=== PATIENT | female | born 1955 | race Caucasian/White ===

== ENCOUNTER 2018-02-26 17:29 | Observation (INO) | payer OTHER ==
--- NOTE | 2018-02-26 18:08 | RAD ---
CHEST ONE VIEW: 02/26/18 HISTORY: Chest pain. COMPARISON: 07/21/11. FINDINGS: The cardiac silhouette is magnified by projection. Pulmonary vasculature upper limits of normal. medi astinum is midline. No lobar consolidation or evidence of pneumothorax. Postoperative changes of each shoulder. IMPRESSION: No active cardiopulmonary abnormalities are demonstrated. POS: [facility]
[2018-02-26 18:17] LABS: Bilirubin Negative (Negative); Blood, Urine Negative (Negative); Clarity CLEAR (Clear); Glucose, Urine (Dipstick) Negative (Negative); Leukocyte Negative (Negative); Nitrite Negative (Negative); Protein, Urine (Dipstick) Negative (Neg-Trace); Specific Gravity, Urine 1.007 (1.002-1.036); Urobilinogen 0.2 mg/dL (0.2-1.0)
[2018-02-26 18:26] LABS: Amphetamine Not Detected (NotDetected); Barbiturates Screen Not Detected (NotDetected); Benzodiazepine Screen Not Detected (NotDetected); Cocaine Metabolite Screen Not Detected (NotDetected); Medtox Control Line Valid? VALID (VALID); Medtox Reader # READER 1; Methadone Not Detected (NotDetected); Methamphetamine Not Detected (NotDetected); Opiate Screen Detected (NotDetected); Oxycodone Screen Not Detected (NotDetected); Phencyclidine (PCP) Not Detected (NotDetected); THC/Cannabinoid Screen Not Detected (NotDetected); Tricyclic Screen Detected (NotDetected)
[2018-02-26 18:40] LABS: #Eosinphils 0.3 thou/uL (0.0-0.7); #Lymphocytes 3.4 thou/uL (1.20-3.40); #Monocytes 0.5 thou/uL (0.11-0.59); #Neutrophils 3.1 thou/uL (1.40-6.50); %Basophils 0.4 % (0.0-1.0); %Eosinophils 4.4 % (0.0-10.0); %Lymphocytes 46.1 % (21.0-51.0); %Monocytes 6.9 % (0.0-10.0); %Neutrophils 42.3 % (42.0-75.0); Hemoglobin 13.2 g/dL (12.0-16.0); Mean Corpuscular HGB CONC 33.7 g/dL (32.0-36.0); Mean Corpuscular Hemoglobin 33.1 pg (27.0-31.0); Mean Corpuscular Volume 98.3 fL (78.0-98.0); Mean Platelet Volume 6.8 fL (7.4-10.4); Platelet Count 212 thou/uL (130-400); RBC Distribution Width 10.8 % (11.5-14.5); Red Blood Cell (RBC) Count 3.99 mill/uL (4.20-5.40); White Blood Cell (WBC) Count 7.4 thou/uL (4.8-10.8)
[2018-02-26 19:05] LABS: ALT (SGPT) 13 U/L (8-55); AST (SGOT) 15 U/L (5-34); Albumin 3.8 g/dL (3.4-4.8); Alkaline Phosphatase 58 U/L (40-150); Anion Gap 15 mmol/L (10-20); BUN (Urea Nitrogen) 11 mg/dL (9.8-20.1); Bilirubin, Total 0.5 mg/dL (0.2-1.2); CK (CPK) 54 U/L (29-168); Calc. Creatinine Clearance 0 mL/min (70-130); Calcium 9.3 mg/dL (7.8-10.44); Carbon Dioxide 21 mmol/L (23-31); Chloride 101 mmol/L (98-107); Estimated GFR-MDRD 63; Globulin 2.9 g/dL (2.4-3.5); Glucose 120 mg/dL (80-115); Lipase 18 U/L (8-78); Potassium 3.7 mmol/L (3.5-5.1); Protein, Total 6.7 g/dL (6.0-8.3); Sodium 133 mmol/L (136-145)
[2018-02-26 19:08] LABS: CKMB 3.5 ng/mL (0-6.6); Troponin I Less than 0.010 ng/mL (< 0.028)
--- NOTE | 2018-02-26 19:32 | CT ---
CT HEAD NONCONTRAST: 02/26/18 HISTORY: Altered mental status. COMPARISON: 07/22/11. FINDINGS: There is no evidence of acute intracranial hemorrhage or infarct. ventricles appear normal in size, s hape and position. No mass effect or shift of midline structures. Calcification within the carotid ar teries at the brain base. Mucosal thickening within each maxillary sinus. IMPRESSION: Atherosclerosis. No acute intracranial abnormalities are demonstrated. POS: [facility]
[2018-02-26 20:49] LABS: Acetaminophen Less than 6.0 mcg/mL (10.0-30.0); Alcohol Less than 10 mg/dL (Less than 10); Salicylate Less than 8.0 mg/dL (15.0-30.0)
--- NOTE | 2018-02-26 21:54 | PDOC.FPRHP ---
- History of Present Illness Chief Complaint: AMS History of Present Illness: Ms Ga is a 62yo female with pmh of TIA's, CHF and hx of substance abuse presenting for AMS starting today. She currently lives with her twin sister and niece. Her niece is their primary caregiver. Most of the hx is provided by niece as patient at the time of initial interview was only oriented to self and a poor historian. Niece appears to be acutely manic, speaking with pressured speech, endorsing lack of sleep and fixation on pt's medical problems. When asking the patient how her day was she cannot remember but feels like it was a normal day. Denies fevers, chills, chest pain, SOB. Pt reports being always weaker on her left side and uses a walker and cane ambulate. Pts niece is very concerned about patients perceived change form baseline. When speaking with ED staff there is some concern for intermittent new right sided weakness and should be admitted for stoke workup. ED Course: ASA, 1L NS - Allergies/Adverse Reactions Allergies Allergy/AdvReac Type Severity Reaction Status Date / Time Sulfa (Sulfonamide Allergy Verified 02/26/18 21:43 Antibiotics) - Home Medications Medication Instructions Recorded Confirmed Type Atorvastatin Calcium 40 mg PO HS 02/26/18 02/26/18 History Benztropine Mesylate 1 mg PO BID 02/26/18 02/26/18 History DULoxetine [Cymbalta] 60 mg PO QAM 02/26/18 02/26/18 History Ibuprofen 600 mg PO TID 02/26/18 02/26/18 History QUEtiapine Fumarate [SEROquel] 100 mg PO HS 02/26/18 02/26/18 History Spironolactone [Aldactone] 100 mg PO QAM 02/26/18 02/26/18 History Topiramate [Topamax] 50 mg PO QAM 02/26/18 02/26/18 History risperiDONE 2 mg PO QAM 02/26/18 02/26/18 History Aspirin [Ecotrin Low Strength] 81 mg PO DAILY tab 02/27/18 Rx - History PMHx: CHF, chronic back pain, TIAs, unspecified psych disorder PSHx: Pt reports cholecystectomy FHx: Dementia in twin sister Social: Smoked for 49 years 3pks per day- quit 2 weeks ago, hx of alcohol use, hx of marijuana use - Review of Systems General: denies: fever/chills, weight/appetite/sleep changes Eyes: reports: other (denies blurry vision). denies: vision changes ENT: denies: nasal congestion, rhinorrhea Respiratory: denies: cough, congestion, shortness of breath Cardiovascular: denies: chest pain, edema Gastrointestinal: denies: nausea, vomiting, diarrhea, constipation, abdominal pain Genitourinary: reports: other (urinary retention) Skin: denies: rashes, lesions Musculoskeletal: denies: pain, swelling Neurological: reports: weakness. denies: numbness - Vital signs BP: 118/81 HR: 69 RR: 18 Tmax: 97.7 Pox: 97% on RA Wt: 85.7kg - Physical Exam Constitutional: NAD, awake, alert and oriented, well developed -Constitutional: Mental status waxes and wanes between oriented to person to Ox4 HEENT: normocephalic and atraumatic, PERRLA, oropharynx clear -HEENT: dry mucous membranes, poor dentition Neck: supple, trachea midline Heart: RRR, pulses present, no edema Lungs: CTAB Abdomen: soft, non-tender, bowel sounds present, other (healed scar on right abdomen) Neurological: CN II-XII intact, other (4/5 wrist aerologist of left hand, 4/5 weakness of left leg) Skin: capillary refill <2 seconds Psychiatric: normal mood and affect, good judgment and insight, intact recent and remote memory FMR H&P: Results - Labs Result Diagrams: 02/26/18 18:31 02/26/18 18:31 Lab results: WBC 7.4 thou/uL (4.8-10.8) 02/26/18 18:31 Hgb 13.2 g/dL (12.0-16.0) 02/26/18 18:31 Hct 39.2 % (36.0-47.0) 02/26/18 18:31 MCV 98.3 fL (78.0-98.0) H 02/26/18 18:31 Plt Count 212 thou/uL (130-400) 02/26/18 18:31 Neutrophils % 42.3 % (42.0-75.0) 02/26/18 18:31 Sodium 133 mmol/L (136-145) L 02/26/18 18:31 Potassium 3.7 mmol/L (3.5-5.1) 02/26/18 18:31 Chloride 101 mmol/L (98-107) 02/26/18 18:31 Carbon Dioxide 21 mmol/L (23-31) L 02/26/18 18:31 BUN 11 mg/dL (9.8-20.1) 02/26/18 18:31 Creatinine 0.90 mg/dL (0.6-1.1) 02/26/18 18:31 Glucose 120 mg/dL (80-115) H 02/26/18 18:31 Lactic Acid 1.7 mmol/L (0.5-2.2) 02/26/18 18:59 Calcium 9.3 mg/dL (7.8-10.44) 02/26/18 18:31 Total Bilirubin 0.5 mg/dL (0.2-1.2) 02/26/18 18:31 AST 15 U/L (5-34) 02/26/18 18:31 ALT 13 U/L (8-55) 02/26/18 18:31 Alkaline Phosphatase 58 U/L (40-150) 02/26/18 18:31 Ammonia 36 umol/L (18-72) 02/26/18 18:31 Creatine Kinase 54 U/L (29-168) 02/26/18 18:31 CK-MB (CK-2) 3.5 ng/mL (0-6.6) 02/26/18 18:31 B-Natriuretic Peptide 25.9 pg/mL (0-100) 02/26/18 20:20 Serum Total Protein 6.7 g/dL (6.0-8.3) 02/26/18 18:31 Albumin 3.8 g/dL (3.4-4.8) 02/26/18 18:31 Lipase 18 U/L (8-78) 02/26/18 18:31 Urine Ketones Negative mg/dL (Negative) 02/26/18 18:03 Urine Blood Negative (Negative) 02/26/18 18:03 Urine Nitrite Negative (Negative) 02/26/18 18:03 Ur Leukocyte Esterase Negative (Negative) 02/26/18 18:03 - Radiology Interpretation Chest x-ray Status: report reviewed by me Additional comment: No acute cardiopulm process CT scan - head Status: report reviewed by me Additional comment: No acute changes FMR H&P: A/P - Problem List (1) Encephalopathy Current Visit: Yes Status: Acute Code(s): G93.40 - ENCEPHALOPATHY, UNSPECIFIED (2) History of recurrent TIAs Current Visit: Yes Status: Acute Code(s): Z86.73 - PRSNL HX OF TIA (TIA), AND CEREB INFRC W/O RESID DEFICITS (3) CHF (congestive heart failure) Current Visit: Yes Status: Acute Code(s): I50.9 - HEART FAILURE, UNSPECIFIED (4) Back pain Current Visit: Yes Status: Acute Code(s): M54.9 - DORSALGIA, UNSPECIFIED - Plan Ms Ga is a 62yo female with pmh of substance abuse, unspecified psych disorder, CHF, TIAs presenting with presumed new intermittent right sided weakness and reported AMS concerning for stroke. Right sided weakness, encephalopathy - Admit to stroke - MRI in AM - Neurochecks q4hr - Continue home Atorvastatin - FLP CHF - Pt appears to euvolemic - BNP 25 - Stict I&Os - Fluid restriction 1800L Unspecified Pysch - Continue home Seroquel, Benztropine, Risperidone HLD - Continue home Atorvastatin TIAs - Unclear of TIA vs stroke - Niece and pt report persistent right handed weakness Tobacco Abuse - Pt reports quitting recently - Continue to scholarship counselor on importance of smoking cessation Nerve Pain - Continue home Duloxetine Code Status: FULL DVT ppx: lovenox FMR H&P: Upper Level - Pertinent history HPI: Ms. Ga is a 62 yo F with PMHx of dementia, polysubtance absue, TIAs and CHF who presents for AMS. She lives with her niece who is her caregiver, as well as a TELECOMMUNICATIONS CONSULTANT, who notes she did not seem herself this afternoon. The patient is unable to describe the day and states that at this time she feels fine. She has no complaints and does not feel that she has any new weakness. She always feels a little weaker on the L side. At home she gets around with a walker and a cane. She states she feels safe at home with her neice and that she has all the needs to be taken care of. Her niece has donald extensive notes regarding her concerns, most notably that she has noticed new weakness on the R as well as decreased UOP. Her niece states that she administers her Tylenol #4 and TCA and patient does not have access to it to inadvertently take more than prescribed. - Pertinent findings Exam: Gen: awake, alert, oriented x1 HEENT: PERRL, EOMI, conjunctiva non-injected. Trachea midline CV: RRR, no murmur noted, heart sounds distant RESP: CTAB ABD: soft, nontender Ext: No peripheral edema, pulses 1+ throughout Neuro: CN intact, strength 5/5 except for 4/5 aerologist on L and 4/5 plantar flexion on RLE CXR: No acute cardiopulmonary findings. Cardiomegaly CT brain WO contrast: Atherosclerosis. No acute intracranial abnormalities. EKG: Low voltage. NSR. Labs: Hgb 13, Hct 39, Plt 212, MCV 98, Na 133, K 3.7, CO2 21, Glu 120, Cr 0.9, Lactic acid 1.7, Trop negative, TSH 3.01, UDS positive for opiates and tricyclics - Plan Date/Time: 02/26/182132 A/P: 62 yo F with PMHx dementia presents with concern for AMS and transient R sided weakness which is waxing and waning 1. AMS: Appears to be at baseline at this time. Will monitor on stroke with neurochecks. CT negative. Will plan for MRI in the morning. Likely waxing and waning of chronic dementia. Labs WNL at this time. 2. CHF: Unknown EF. Most care has been at [facility]. Will use caution with any fluid administration and continue home medications. BNP 25. Strict I/Os. Fluid restricted diet to 1800 mL. 3. Dementia: Twin sister has it as well. 4. TIAs: Possible stroke as patient has what seem to be chronic findings of mild weakness in L aerologist and RLE plantar flexion. Will review MRI findings. 5. Unspecified psych disorder: Continue home Seroquel, benztropine, risperdone 6. HLD: Continue home atorvastatin. Will risk stratify with FLP in a.m. 7. Neuropathy: Continue home duloxetine 8. UDS positive for opiates and TCAs: Neither appear on patient med list but ER reports patient taking Tylenol #4 and TCAs. Will need to clarify with niece in the morning. No family at bedside at this time. 9. ?Seizure disorder: Topamax PPX: Lovenox CODE: FULL I, Janna Deleon MD, have evaluated this patient and agree with findings/plan as outlined by rn internal medicine resident. Pertinent changes/additions are listed here. Attending Addendum - Attending Addendum Date/Time: 02/26/18 [id number] I personally evaluated the patient and discussed the management with Dr. Turk. I agree with the History, Examination, Assessment and Plan documented above with any addition or exceptions noted below. The patient was brought to the ER for a change in mentation. There was mention of weakness in extremities though her neuro exam was normal for me. She is alert and oriented to person, place and year. The patient was using both hand and legs to move herself up the in the bed in the ER. No family was at bedside during my evaluation. Pt will be admitted for TIA workup and will have MRI tomorrow.
[2018-02-26 22:37] VITALS: BMI 33.1
[2018-02-27] MEDS ORDERED: Ibuprofen 600 MG TAB PO PRN (00:18)
[2018-02-27] MEDS ORDERED: Acetaminophen/Codeine 30-300mg Tablet PO PRN (04:28)
[2018-02-27 06:04] LABS: Cardiac Risk 3.6 (Less than 4.5)
--- NOTE | 2018-02-27 06:52 | PDOC.FM ---
- Subjective Subjective: Pt. states she is doing well this morning. She denies any weakness, dizziness, chest pain, or SOB. Niece was present and has multiple concerns unrelated to this hospital stay. - Objective MAR Reviewed: Yes Vital Signs & Weight: Vital Signs (12 hours) Temp Pulse Resp BP Pulse Ox 02/27/18 03:40 97.7 F 52 L 16 130/72 96 02/26/18 23:00 97.9 F 58 L 16 02/26/18 22:36 97.9 F 58 L 16 128/73 95 Weight Weight 90.356 kg I&O: 02/25/18 02/26/18 02/27/18 06:59 06:59 06:59 Intake Total 300 Output Total 400 Balance -100 Result Diagrams: 02/26/18 18:31 02/26/18 18:31 <Horace Brice - Last Filed: 02/27/18 16:34> - Objective Vital Signs & Weight: Vital Signs (12 hours) Temp Pulse Resp BP Pulse Ox 02/27/18 16:00 98.0 F 60 18 93/55 L 95 02/27/18 11:39 98.1 F 61 16 93/53 L 95 Weight Weight 90.356 kg I&O: 02/26/18 02/27/18 02/28/18 06:59 06:59 06:59 Intake Total 300 Output Total 400 Balance -100 Result Diagrams: 02/26/18 18:31 02/26/18 18:31 <Jennifer Rosas - Last Filed: 02/27/18 23:13> Phys Exam - Physical Examination Constitutional: NAD HEENT: PERRLA Dry mucus membranes Neck: no JVD, full ROM Respiratory: no wheezing, clear to auscultation bilateral Cardiovascular: RRR, no significant murmur Gastrointestinal: soft, non-tender Musculoskeletal: no edema, pulses present Neurological: non-focal, normal sensation, moves all 4 limbs Psychiatric: normal affect, A&O x 3 Skin: normal turgor, cap refill <2 seconds <Horace Brice - Last Filed: 02/27/18 16:34> Dx/Plan (1) Back pain Code(s): M54.9 - DORSALGIA, UNSPECIFIED Status: Acute (2) CHF (congestive heart failure) Code(s): I50.9 - HEART FAILURE, UNSPECIFIED Status: Acute (3) Encephalopathy Code(s): G93.40 - ENCEPHALOPATHY, UNSPECIFIED Status: Acute (4) History of recurrent TIAs Code(s): Z86.73 - PRSNL HX OF TIA (TIA), AND CEREB INFRC W/O RESID DEFICITS Status: Acute - Plan Plan: 62 yo F PMH substance abuse, psych disorder, CHF, recurrent TIAs Right sided weakness, encephalopathy -Admit to stroke. Pending MRI, Q4 hr neurochecks, continue home atorvastatin. We will start aspirin. CHF -BNP was 25 in ER. We will monitor I&Os and fluid restrict at 1800mL Unspecified psych -home seroquel, benzotropine, risperidone HLD -Continue atorvastatin Hx of TIAs -New right sided weakness, will monitor as mentioned above Nerve pain -Continue duloxetine Code: full Family: Niece and daughter present in room DVT ppx: lovenox Disposition: likely home today if MRI is negative <Horace Brice - Last Filed: 02/27/18 16:34> (1) Encephalopathy Code(s): G93.40 - ENCEPHALOPATHY, UNSPECIFIED Status: Acute (2) History of recurrent TIAs Code(s): Z86.73 - PRSNL HX OF TIA (TIA), AND CEREB INFRC W/O RESID DEFICITS Status: Acute (3) CHF (congestive heart failure) Code(s): I50.9 - HEART FAILURE, UNSPECIFIED Status: Acute (4) Back pain Code(s): M54.9 - DORSALGIA, UNSPECIFIED Status: Acute <Jennifer Rosas - Last Filed: 02/27/18 23:13> Attending Addendum - Attending Addendum Date/Time: 02/27/18 0612 I personally evaluated the patient and discussed the management with Dr. Brice. I agree with the History, Examination, Assessment and Plan documented above with any addition or exceptions noted below. The patient is doing very well this morning. She is A&O x 4. Her neuro exam is normal, no weakness is appreciated. Will get MRI this morning and if negative will likely d/c home. There was some concern with urination per report from pt's javi however the patient was able to void this morning without difficulty. <Jennifer Rosas - Last Filed: 02/27/18 23:13>
[2018-02-27] MEDS: Aspirin 81 mg Enteric Coated Tablet PO SCH ×2 (08:57→09:31)
[2018-02-27] MEDS ORDERED: DULoxetine 60 MG CAP PO SCH (09:00)
[2018-02-27] MEDS ORDERED: risperiDONE 1 MG TAB PO SCH (09:00)
[2018-02-27] MEDS ORDERED: Spironolactone 100 MG TAB PO SCH (09:00)
[2018-02-27] MEDS ORDERED: Enoxaparin Sodium 40 MG/0.4 ML SYRINGE SC SCH (09:00)
[2018-02-27] MEDS ORDERED: Ibuprofen 600 MG TAB PO SCH (09:00)
[2018-02-27] MEDS ORDERED: Topiramate 25 MG TAB PO SCH (09:00)
[2018-02-27] MEDS ORDERED: Benztropine 1 MG TAB PO SCH (09:00)
--- NOTE | 2018-02-27 12:52 | MRI ---
BRAIN MRI WITH AND WITHOUT CONTRAST: DATE: 02/27/18. COMPARISON: None. HISTORY: Altered mental status, possible medication overdose, slurred speech. TECHNIQUE: Multiplanar, multisequence MR imaging of the brain is obtained with and without contrast. FINDINGS: The diffusion weighted imaging demonstrates no evidence for acute infarction. There is mucosal thickening involving the maxillary sinuses bilaterally. Arterial flow voids at the axial level of the skull base appear grossly unremarkable on the T2 weight ed imaging. Axial gradient echo imaging demonstrates no evidence for intracranial hemorrhage. A few scattered foci of increased T2 and FLAIR signal are noted within the subcortical and periventri cular white matter suggesting mild small-vessel disease. There is no midline shift, mass effect, or ventricular enlargement. Postcontrast imaging demonstrates no abnormal enhancement within the brain parenchyma. IMPRESSION: No acute findings. POS: [facility]
[2018-02-27 16:04] VITALS: BP 93/55; TEMP 98
--- NOTE | 2018-02-27 18:49 | DIS-2 ---
DATE OF ADMISSION: 02/26/2018 DATE OF DISCHARGE: 02/27/2018 ADMITTING ATTENDING: Dr. Rosas DISCHARGE ATTENDING: Dr. Rosas. RESIDENT: Brook Brice DO CONSULTATIONS: None. PROCEDURES: Brain CT with no signs of acute process, brain MRI with no signs of acute process, chest x-ray with no active cardiopulmonary abnormalities. PRIMARY DIAGNOSES: Transient ischemic attack. SECONDARY DIAGNOSES: History of TIAs, CHF, unspecified psych disorder, substance abuse. DISCHARGE MEDICATIONS: None. DISCONTINUED MEDICATIONS: None. HISTORY OF PRESENT ILLNESS AND HOSPITAL COURSE: This is a 62-year-old female who presented to the ER with a reported altered mental status, slumping in her chair, and at the time right-sided weakness. In the ER, received a CT with the results listed above. She was admitted to the floor for observati on and stroke workup. Patient's niece is concerned for stroke versus seizures. No seizure activity was noted while she was here. The patient has multiple concerns that are unrelated to hospitalizatio n. The patient improved throughout the night and was awake, alert, and oriented x4 this morning and at the time of discharge. The patient is currently on aspirin daily and a statin daily. Patient was stable at the time of discharge. DISPOSITION: Stable. DISCHARGE INSTRUCTIONS: 1. Location: Home. 2. Activity: As tolerated. 3. Diet: Full. 4. Follow up with primary care physician in 1-2 weeks.
[2018-02-27] MEDS ORDERED: Atorvastatin Calcium 40 MG TAB PO SCH (21:00)
== END 2018-02-27 17:25 | disposition home or self-care (01) ==
LOC: ERS 17:29 → 2SE 22:19
PROVIDERS: ADMIT Family Medicine; ATTEND Family Medicine
DX: G45.9 Transient cerebral ischemic attack, unspecified (principal); G93.40 Encephalopathy, unspecified; G89.29 Other chronic pain; M54.9 Dorsalgia, unspecified; I50.9 Heart failure, unspecified; F19.20 Other psychoactive substance dependence, uncomplicated; F99 Mental disorder, not otherwise specified; Z87.891 Personal history of nicotine dependence; Z86.73 Personal history of transient ischemic attack (TIA), and cerebral infarction without residual deficits; Z79.82 Long term (current) use of aspirin; Z79.899 Other long term (current) drug therapy; Z88.2 Allergy status to sulfonamides
CPT/HCPCS: 36415; 51701; 70450; 70553; 71045; 80053; 80061; 80306; 80307; 81003; 82140; 82553; 83605; 83690; 83880; 84443; 84484; 85025; 87086; 93005; 96360; 96361; 96372; A4353; G0378; J1650

== ENCOUNTER 2018-02-28 10:51 | Emergency (ER) | payer OTHER ==
--- NOTE | 2018-02-28 12:00 | RAD ---
TWO VIEWS OF THE CHEST: DATE: 02/28/18. COMPARISON: 02/26/18. HISTORY: Chest pain and shortness of breath. FINDINGS: Postsurgical anchors overlie bilateral humeral heads. No pneumothorax or pleural fluid. No focal co nsolidation or alveolar edema. IMPRESSION: No acute findings. POS: [facility]
[2018-02-28 12:17] LABS: #Lymphocytes 1.8 thou/uL (1.20-3.40); #Monocytes 0.7 thou/uL (0.11-0.59); #Neutrophils 11.2 thou/uL (1.40-6.50); %Basophils 0.3 % (0.0-1.0); %Eosinophils 0.3 % (0.0-10.0); %Lymphocytes 13.3 % (21.0-51.0); %Neutrophils 81.2 % (42.0-75.0); Mean Corpuscular HGB CONC 34.6 g/dL (32.0-36.0); Mean Corpuscular Hemoglobin 34.2 pg (27.0-31.0); Mean Platelet Volume 6.9 fL (7.4-10.4); Platelet Count 239 thou/uL (130-400); RBC Distribution Width 10.9 % (11.5-14.5); Red Blood Cell (RBC) Count 3.78 mill/uL (4.20-5.40); White Blood Cell (WBC) Count 13.8 thou/uL (4.8-10.8)
[2018-02-28 12:39] LABS: ALT (SGPT) 11 U/L (8-55); AST (SGOT) 14 U/L (5-34); Albumin 3.8 g/dL (3.4-4.8); Alkaline Phosphatase 58 U/L (40-150); Anion Gap 13 mmol/L (10-20); BUN (Urea Nitrogen) 6 mg/dL (9.8-20.1); Bilirubin, Total 0.5 mg/dL (0.2-1.2); Calc. Creatinine Clearance 0 mL/min (70-130); Calcium 9.1 mg/dL (7.8-10.44); Carbon Dioxide 20 mmol/L (23-31); Chloride 106 mmol/L (98-107); Estimated GFR-MDRD 77; Globulin 2.9 g/dL (2.4-3.5); Glucose 130 mg/dL (80-115); Potassium 4.4 mmol/L (3.5-5.1); Protein, Total 6.7 g/dL (6.0-8.3); Sodium 135 mmol/L (136-145)
[2018-02-28 12:44] LABS: CKMB 4.6 ng/mL (0-6.6); Troponin I Less than 0.010 ng/mL (< 0.028)
[2018-02-28 15:09] LABS: CKMB 5.1 ng/mL (0-6.6); Troponin I Less than 0.010 ng/mL (< 0.028)
== END 2018-02-28 15:55 | disposition home or self-care (01) ==
LOC: ERS 10:51
DX: R07.2 Precordial pain (principal); F31.9 Bipolar disorder, unspecified; F20.9 Schizophrenia, unspecified; Z79.899 Other long term (current) drug therapy; Z79.1 Long term (current) use of non-steroidal anti-inflammatories (NSAID)
CPT/HCPCS: 36415; 71046; 80053; 82553; 84484; 85025; 93005

== ENCOUNTER 2018-07-16 12:51 | Outpatient (CLI) | payer OTHER ==
[~2018-07-16 12:51] MED LIST: ISOVUE-370 76%-LOCM 1 ML ONE
[2018-07-16 13:24] LABS: Estimated GFR-MDRD - POC Greater than 90
--- NOTE | 2018-07-16 15:53 | CT ---
CT ABDOMEN AND PELVIS WITH AND WITHOUT IV CONTRAST: HISTORY: Hematuria, unspecified. FINDINGS: The lung bases are unremarkable. There is a questionable mildly enhancing mass in the left lobe of t he liver measuring 6.5 cm. A 7 mm low-density lesion is seen in the right lobe of the liver. No kathy cified gallstones are seen. The spleen, pancreas, and adrenal glands are normal. No calculi are seen in the kidneys, ureters, or the urinary bladder. No hydroureteral nephrosis is s een on either side. Postcontrast images demonstrate no evidence of a renal mass. There is normal co ntrast excretion into the ureter or the urinary bladder. No free air, free fluid, or lymphadenopathy is seen in the abdomen or pelvis. There are vascular kathy cifications without evidence of aneurysmal dilatation of the abdominal aorta. There are degenerative changes in the spine. Uterus is present. IMPRESSION: 1. No CT evidence of urinary tract calculus/obstruction or renal mass. 2. Probable hepatic mass. Evaluation with ultrasound is recommended. POS: [facility]
== END 2018-07-16 12:52 | disposition home or self-care (01) ==
LOC: BICCT 12:51
PROVIDERS: ATTEND Urology
DX: R31.9 Hematuria, unspecified (principal)
CPT/HCPCS: 74178; 82565

== ENCOUNTER 2020-04-09 20:02 | Inpatient (IN) | payer OTHER ==
[~2020-04-09 20:02] MED LIST changes: -ISOVUE-370 76%-LOCM 1 ML ONE; +Iopamidol 370 76% 100 ML VIAL ONE
[2020-04-09 21:01] LABS: Hemoglobin 14.2 g/dL (12.0-16.0); Mean Corpuscular HGB CONC 34.9 g/dL (32.0-36.0); Mean Corpuscular Hemoglobin 33.8 pg (27.0-31.0); Mean Corpuscular Volume 96.9 fL (78.0-98.0); Mean Platelet Volume 9.3 fL (7.4-10.4); Platelet Count 145 thou/uL (130-400); RBC Distribution Width 11.5 % (11.5-14.5)
[2020-04-09 21:08] LABS: Band 23 % (5-11); Lymphocytes 9 % (21-51); MDiff Complete? YES; Monocytes 4 % (0-10); Neutrophil 64 % (42-75); Platelet Morphology Comment Appears Adequate
[2020-04-09 21:16] LABS: ALT (SGPT) 12 U/L (8-55); AST (SGOT) 29 U/L (5-34); Albumin 3.7 g/dL (3.4-4.8); Alkaline Phosphatase 42 U/L (40-110); Anion Gap 17 mmol/L (10-20); BUN (Urea Nitrogen) 24 mg/dL (9.8-20.1); Calc. Creatinine Clearance 0 mL/min (70-130); Calcium 9.3 mg/dL (7.8-10.44); Carbon Dioxide 22 mmol/L (23-31); Chloride 100 mmol/L (98-107); Estimated GFR-MDRD 46; Globulin 3.4 g/dL (2.4-3.5); Glucose 140 mg/dL (80-115); Lipase 16 U/L (8-78); Potassium 4.5 mmol/L (3.5-5.1); Protein, Total 7.1 g/dL (6.0-8.3); Sodium 134 mmol/L (136-145)
[2020-04-09] MEDS ORDERED: Ondansetron PF 4 MG/2 ML Vial ONE (22:38)
[2020-04-09] MEDS ORDERED: Morphine 4 MG/ML VIAL ONE (22:38)
--- NOTE | 2020-04-09 22:52 | CT ---
CT OF THE ABDOMEN AND PELVIS WITH IV CONTRAST INDICATION: History of diarrhea and abdominal pain COMPARISON: Prior CT the abdomen and pelvis with and without contrast dated July 16, 2018 FINDINGS: ABDOMEN: Lung bases: There is pneumomediastinum and gas dissecting into the right aspect of the extrapleural s pace of the lower anterior right hemithorax, along the surface of the right hemidiaphragm. This is communicating with extensive gas in the right aspect of the retroperitoneum that communicates with a large collection of gas surrounding the sigmoid rectal junction. Liver: No focal lesion. Gallbladder: Normal appearing. Pancreas: Normal. Adrenal glands: Normal. Spleen: Normal. Kidneys and ureters: There is extensive gas within the right perirenal space. There is scattered gas within the anterior pararenal space. No focal renal lesion is evident. Vasculature: There are mild vascular calcifications seen involving the visualized vasculature. Lymph nodes:No lymphadenopathy. Free fluid in abdomen:No free fluid is evident. PELVIS: Small and large bowel: There is prominent amount retained stool within the rectum, sigmoid colon, lef t hemicolon and transverse colon with more fluid density seen within the right hemicolon. The small bowel is of normal caliber. There is prominent amount of pneumatosis surrounding the upper rectum and sigmoid colon. Appendix:Not definitely seen Bladder: Normal. Rectal and perirectal soft tissues:There is prominent amount of gas in the wall of the upper rectum. Prominent amount of gas is seen within the upper perirectal and presacral soft tissues. Reproductive structures: Normal. Free fluid in pelvis: Mild free fluid is seen within the lower pelvis. Lymphadenopathy pelvis: No lymphadenopathy is evident. Osseous structures: No acute osseous abnormality. No destructive osteolytic or osteoblastic lesion i s identified. There is scattered degenerative and osteoarthritic changes. Soft tissues:Normal. IMPRESSION: 1. Extensive pneumatosis involving the distal sigmoid colon and upper rectum with extensive gas prese nt within the upper perirectal soft tissues extending into the retroperitoneum of the abdomen and dissecting into the mediastinum and right hemithorax extrapleural space. A focal mucosal/submucosal t ear from prominent constipation in the sigmoid colon and upper rectum is suspected. Surgical consultation is recommended. 2. Findings called to Dr. Newton at 10:40 PM on April 09, 2020.
[2020-04-09] MEDS ORDERED: Piperacillin/Tazobactam 4.5 GM VIAL ONE (23:09)
[2020-04-09] MEDS ORDERED: Piperacillin/Tazobactam 3.375 GM VIAL ONE (23:12)
[2020-04-09] MEDS ORDERED: Ondansetron PF 4 MG/2 ML Vial IVP PRN (23:42)
--- NOTE | 2020-04-09 23:54 | PDOC.HHP ---
Hospitalist HPI - History of Present Illness Abdominal pain History of Present Illness: 64-year-old woman with a history of bipolar disorder, schizophrenia, chronic back pain, neuropathic pain presents to the emergency department with a complaint of abdominal pain and diarrhea. Patient reports she has been experiencing abdominal pain since last week but the pain became much worse today. She also reported several bouts of diarrhea. She denied any bloody stool. She denied any vomiting but endorsed decreased oral intake. She mentioned her last bowel movement was this morning. Patient denies any fever. CT scan done in the emergency department report extensive pneumatosis involving the distal sigmoid colon and upper rectum with extensive gas present within the upper perirectal soft tissue extending into the retroperitoneum of the abdomen and exiting into the mediastinum and right hemithorax extrapleural space. It also reported a focal mucosal or submucosal tear from prominent constipation in the sigmoid colon and upper rectum. Had WBC count 18,000. Patient is normotensive, intermittently tachycardic admit criteria for sepsis. Her lactic acid was 5. I spoke to General Surgeon-Dr. Fox on the phone, to discuss plan of care since this case is mostly surgical. Dr. Navarrete stated he would want to observe patient for improvement with IV antibiotics over the next 24 hours before considering surgery and for that matter recommended admission to the hospitalist service for him to consult. He also recommended not to treat constipation until he sees and evaluate the patient. Hospitalist ROS - Review of Systems Other: Except as documented, all other systems reviewed and negative. - Medication Medications: Medication Instructions Recorded Confirmed Type Atorvastatin Calcium 40 mg PO HS 02/26/18 04/10/20 History Ibuprofen 600 mg PO TID 02/26/18 04/10/20 History Aspirin [Ecotrin Low Strength] 81 mg PO DAILY tab 02/27/18 04/10/20 Rx Acetaminophen With Codeine 1 tab PO Q6HR PRN 11/29/18 04/10/20 History [Acetaminophen/Codeine #4] Alendronate Sodium 70 mg PO Q7DAYS 11/29/18 04/10/20 History DULoxetine HCl [Cymbalta] 30 mg PO DAILY 11/29/18 04/10/20 History Fluticasone Propionate [Flonase 1 spray EA NARE BID 11/29/18 04/10/20 History Nasal Nocatee] Furosemide [Lasix] 20 mg PO DAILY 11/29/18 04/10/20 History Ipratropium [Atrovent HFA] 1 puff INH QID PRN 11/29/18 04/10/20 History Multivit-Minerals/Folic/Ginkgo 1 tab PO DAILY 11/29/18 04/10/20 History [One Daily For Women 50+ Adv] Omeprazole 40 mg PO DAILY 11/29/18 04/10/20 History Pregabalin [Lyrica] 300 mg PO BID 11/29/18 04/10/20 History Raloxifene HCl 60 mg PO DAILY 11/29/18 04/10/20 History Temazepam 30 mg PO HS 11/29/18 04/10/20 History risperiDONE [Risperidone] 3 mg PO BID 11/29/18 04/10/20 History Clotrimazole 1% Cream [Lotrimin 1% 1 applic TOP BID 04/10/20 04/10/20 History Cream] Melatonin 10 mg PO HS PRN 04/10/20 04/10/20 History Ondansetron [Zofran ODT] 4 mg PO Q6HR PRN 04/10/20 04/10/20 History Hospitalist History - Past Medical History Other Medical History: Gastroesophageal reflux disease, hyperlipidemia, hypertension, COPD, chronic back pain, schizophrenia, bipolar disorder, depression, anxiety, history of previous inpatient psychiatric admission. - Past Surgical History Other Surgical History: Appendectomy, tonsillectomy. Left and right shoulder, bilateral ankle, rotator cuff surgeries - Family History Other Family History: Reviewed and noncontributory. - Social History Smoking Status: Current every day smoker Alcohol: reports: None Drugs: reports: none, Other (Prior history of drug abuse.) Living Situation: Other (Assisted living-[facility].) - Exam General Appearance: NAD, awake alert Eye: PERRL, anicteric sclera ENT: normocephalic atraumatic, no oropharyngeal lesions, moist mucosa Neck: supple, symmetric, no JVD, no thyromegaly Heart: no murmur, no gallops, no rubs Heart - other findings: Tachycardia Respiratory: CTAB, no wheezes, no rales, no ronchi Gastrointestinal: soft, normal bowel sounds, tender to palpation (Diffuse. Positive rebound tenderness.), distended Gastrointestinal - other findings: Moderately distended, Extremities: no cyanosis, 2+ LE edema Skin: normal turgor, no rashes Neurological: cranial nerve grossly intact, no weakness, no focal deficits Musculoskeletal: normal tone, normal strength Psychiatric: oriented to person, oriented to place, flat affect Hospitalist Results - Labs Result Diagrams: 04/09/20 20:24 04/09/20 20:24 Lab results: WBC 18.0 thou/uL (4.8-10.8) H 04/09/20 20:24 Hgb 14.2 g/dL (12.0-16.0) 04/09/20 20:24 Hct 40.7 % (36.0-47.0) 04/09/20 20:24 MCV 96.9 fL (78.0-98.0) 04/09/20 20:24 Plt Count 145 thou/uL (130-400) 04/09/20 20:24 Band Neuts % (Manual) 23 % (5-11) H 04/09/20 20:24 Sodium 134 mmol/L (136-145) L 04/09/20 20:24 Potassium 4.5 mmol/L (3.5-5.1) 04/09/20 20:24 Chloride 100 mmol/L (98-107) 04/09/20 20:24 Carbon Dioxide 22 mmol/L (23-31) L 04/09/20 20:24 BUN 24 mg/dL (9.8-20.1) H 04/09/20 20:24 Creatinine 1.18 mg/dL (0.6-1.1) H 04/09/20 20:24 Glucose 140 mg/dL (80-115) H 04/09/20 20:24 Calcium 9.3 mg/dL (7.8-10.44) 04/09/20 20:24 Total Bilirubin 1.0 mg/dL (0.2-1.2) 04/09/20 20:24 AST 29 U/L (5-34) 04/09/20 20:24 ALT 12 U/L (8-55) 04/09/20 20:24 Alkaline Phosphatase 42 U/L (40-110) 04/09/20 20:24 Serum Total Protein 7.1 g/dL (6.0-8.3) 04/09/20 20:24 Albumin 3.7 g/dL (3.4-4.8) 10/19/20 20:24 Lipase 16 U/L (8-78) 04/09/20 20:24 - Radiology Interpretation CT scan - abdomen Status: report reviewed by me (Result as mentioned above.) Hospitalist H&P A/P - Problem (1) Acute abdomen Code(s): R10.0 - ACUTE ABDOMEN Status: Acute (2) Bowel perforation Code(s): K63.1 - PERFORATION OF INTESTINE (NONTRAUMATIC) Status: Acute (3) Pneumatosis of intestines Code(s): K63.89 - OTHER SPECIFIED DISEASES OF INTESTINE Status: Acute (4) Constipation Code(s): K59.00 - CONSTIPATION, UNSPECIFIED Status: Acute (5) Pneumoperitoneum Code(s): K66.8 - OTHER SPECIFIED DISORDERS OF PERITONEUM Status: Acute (6) Pneumomediastinum Code(s): J98.2 - INTERSTITIAL EMPHYSEMA Status: Acute - Plan Plan: Admit patient to IMCU for close monitoring. Sepsis protocol initiated. Aggressive IV hydration with normal saline. Serial lactate. IV Zosyn. Pain management as needed. Consult to general surgery requested. I spoke to Dr. Fox. Dr. Fox recommend nonsurgical management for the next 24 hours. Strict n.p.o. Monitor CBC and BMP. Optimize electrolytes. Serial abdominal examinations.
[2020-04-09] MEDS ORDERED: Vancomycin 1 GM/200 ML BAG ONE (23:55)
[2020-04-10 01:51] VITALS: BMI 37.1
[2020-04-10] MEDS ORDERED: diphenhydrAMINE 50 MG/ML VIAL IVP SCH (02:00)
[2020-04-10] MEDS: Morphine 2 MG/ML VIAL SLOW IVP PRN ×2 (02:04→08:35)
[2020-04-10] MEDS: Sodium Chloride 0.9% 1,000 ML IV SCH ×2 (02:06→08:35)
[2020-04-10 02:51] LABS: Lactic Acid 4.4 mmol/L (0.5-2.2)
[2020-04-10 04:37] LABS: Calc. Creatinine Clearance 124 mL/min (70-130); Calcium 8.9 mg/dL (7.8-10.44); Chloride 102 mmol/L (98-107); Estimated GFR-MDRD 80; Potassium 4.8 mmol/L (3.5-5.1); Sodium 134 mmol/L (136-145)
[2020-04-10] MEDS: Piperacillin/Tazobactam 3.375 GM in Sodium Chloride 0.9% 100 ML IVPB SCH ×4 (06:16→23:37)
[2020-04-10 06:26] LABS: Band 23 % (5-11); Hemoglobin 12.3 g/dL (12.0-16.0); Lymphocytes 13 % (21-51); MDiff Complete? YES; Mean Corpuscular HGB CONC 32.5 g/dL (32.0-36.0); Mean Corpuscular Hemoglobin 31.5 pg (27.0-31.0); Mean Corpuscular Volume 96.8 fL (78.0-98.0); Mean Platelet Volume 9.1 fL (7.4-10.4); Monocytes 5 % (0-10); Neutrophil 59 % (42-75); Platelet Count 163 thou/uL (130-400); Platelet Morphology Comment Appears Adequate; RBC Distribution Width 11.5 % (11.5-14.5); Red Blood Cell (RBC) Count 3.91 mill/uL (4.20-5.40); White Blood Cell (WBC) Count 12.2 thou/uL (4.8-10.8)
[2020-04-10] MEDS ORDERED: Famotidine/PF 20 mg/2ml Vial SLOW IVP SCH (09:00)
[2020-04-10 09:11] LABS: Lactic Acid 1.3 mmol/L (0.5-2.2)
[2020-04-10] MEDS ORDERED: Lidocaine 1% PF 5 ML VIAL ONE (09:42)
[2020-04-10] MEDS ORDERED: Glycopyrrolate 0.2 MG/ML 5 ML SYRINGE ONE (09:42)
[2020-04-10] MEDS ORDERED: Dexamethasone 20 MG/5 ML VIAL ONE (09:42)
[2020-04-10] MEDS ORDERED: Rocuronium Bromide 10 MG/ML (10ML VIAL) ONE (09:42)
[2020-04-10] MEDS ORDERED: Succinylcholine Chloride 20 MG/ML 10 ml SYRINGE FS ONE (09:42)
[2020-04-10] MEDS ORDERED: Labetalol HCl 100 MG/20 ML VIAL ONE (09:42)
[2020-04-10] MEDS ORDERED: PROPOFOL 200 MG/20 ML VIAL ONE (09:42)
[2020-04-10] MEDS ORDERED: Ondansetron PF 4 MG/2 ML Vial ONE ×2 (09:42→16:35)
[2020-04-10 10:23] LABS: Carbon Dioxide 19 mmol/L (23-31)
[2020-04-10 10:24] LABS: Anion Gap 16 mmol/L (10-20)
[2020-04-10 10:29] LABS: BUN (Urea Nitrogen) 20 mg/dL (9.8-20.1); Glucose 102 mg/dL (80-115)
[2020-04-10 11:46] LABS: SARS-CoV-2 MS2 Positive; SARS-CoV-2 N Gene Negative; SARS-CoV-2 S Gene Negative; SARS-CoV-2 by NAA Not Detected (NotDetected); SARS-CoV-2 orf1ab Negative
--- NOTE | 2020-04-10 12:47 | PDOC.HOSPP ---
- Subjective Encounter Date: 04/10/20 Encounter Time: 11:00 Subjective: Up in bed complains of abdominal pain. - Objective Vital Signs & Weight: Vital Signs (12 hours) Temp Pulse Resp BP Pulse Ox 04/10/20 08:00 95 04/10/20 07:55 97.9 F 96 16 99/63 95 04/10/20 04:36 98.6 F 86 18 107/73 97 04/10/20 02:33 97 Weight Admit Weight 223 lb 3.2 oz Weight 223 lb 3 oz Result Diagrams: 04/10/20 05:34 04/10/20 04:14 Hospitalist ROS - Review of Systems Cardiovascular: denies: chest pain, palpitations, orthopnea, paroxysmal noc. dyspnea, edema, light headedness, other Gastrointestinal: reports: abdominal pain Genitourinary: denies: dysuria, frequency, incontinence, hematuria, retention, other Musculoskeletal: denies: neck pain, shoulder pain, arm pain, back pain, hand pain, leg pain, foot pain, other - Medication Medications: Active Medications Generic Name Dose Route Start Last Admin Trade Name Freq PRN Reason Stop Dose Admin Famotidine 20 mg 04/10/20 09:00 04/10/20 08:34 Famotidine/Pf 20 Mg/2ml Vial SLOW IVP 20 mg Q12HR IFTIKHAR Administration Piperacillin Sod/Tazobactam 100 mls @ 200 mls/hr 04/10/20 06:00 04/10/20 11:38 Sod 3.375 gm/ Sodium Chloride IVPB 100 mls Q6HR IFTIKHAR Administration Sodium Chloride 1,000 mls @ 100 mls/hr 04/09/20 23:45 04/10/20 08:35 Normal Saline 0.9% IV 1,000 mls .Q10H IFTIKHAR Administration Morphine Sulfate 2 mg 04/09/20 23:49 04/10/20 08:35 Morphine 2 Mg/Ml Vial SLOW IVP 2 mg Q4H PRN Administration Severe Pain (7-10) - Exam Neck: negative: supple, symmetric, no JVD, no thyromegaly, no lymphadenopathy, no carotid bruit, JVD Heart: negative: RRR, no murmur, no gallops, no rubs, normal peripheral pulses, irregular, diminshed peripheral pulses, murmur present, II/IV, III/IV Respiratory: negative: CTAB, no wheezes, no rales, no ronchi, normal chest expansion, no tachypnea, normal percussion, rales, rhonchi, tachypneic, wheezes Gastrointestinal: soft, normal bowel sounds, tender to palpation Hosp A/P (1) Abdominal pain Code(s): R10.9 - UNSPECIFIED ABDOMINAL PAIN Status: Acute (2) Diarrhea Code(s): R19.7 - DIARRHEA, UNSPECIFIED Status: Acute (3) Pneumatosis of intestines Code(s): K63.89 - OTHER SPECIFIED DISEASES OF INTESTINE Status: Acute (4) Pneumoperitoneum Code(s): K66.8 - OTHER SPECIFIED DISORDERS OF PERITONEUM Status: Acute (5) History of recurrent TIAs Code(s): Z86.73 - PRSNL HX OF TIA (TIA), AND CEREB INFRC W/O RESID DEFICITS Status: Acute (6) Sepsis Code(s): A41.9 - SEPSIS, UNSPECIFIED ORGANISM Status: Acute - Plan We will continue antibiotics for now. Patient will require surgical interven tion. Lactic acidosis improving. We will continue home medications. Patient currently n.p.o.
[2020-04-10] MEDS ORDERED: Melatonin 3 MG TAB PO PRN (13:12)
[2020-04-10] MEDS ORDERED: Albumin 5% 0 ML ONE (13:25)
[2020-04-10] MEDS ORDERED: Phenylephrine 10 MG/ML VIAL ONE (13:25)
[2020-04-10] MEDS ORDERED: Fentanyl 250 MCG/5 ML VIAL ONE (13:25)
[2020-04-10] MEDS ORDERED: Promethazine HCl 25 MG/ML VIAL SLOW IVP PRN (15:54)
[2020-04-10] MEDS ORDERED: Ondansetron HCl/PF 4 MG/2 ML Vial IVP PRN (15:54)
[2020-04-10] MEDS ORDERED: Promethazine HCl 25 MG/ML VIAL IM PRN ×3 (15:54→17:48)
[2020-04-10] MEDS ORDERED: Fentanyl 100 MCG/2 ML VIAL ONE ×2 (16:05→16:25)
[2020-04-10] MEDS ORDERED: fentaNYL Citrate/PF 2,000 MCG in Sodium Chloride 0.9% 60 ML IV PRN (16:33)
[2020-04-10] MEDS ORDERED: Zolpidem Tartrate 5 MG TAB PO PRN (16:33)
[2020-04-10] MEDS ORDERED: Naloxone HCl 0.4 mg/ml Vial IV PRN (16:33)
[2020-04-10] MEDS ORDERED: diphenhydrAMINE 50 MG/ML VIAL IVP PRN (16:33)
[2020-04-10] MEDS ORDERED: diphenhydrAMINE 50 MG/ML VIAL IM PRN (16:33)
[2020-04-10] MEDS ORDERED: Ondansetron PF 4 MG/2 ML Vial IVP PRN ×2 (16:33→17:48)
[2020-04-10] MEDS ORDERED: Communication Order-Pharmacy FS SCH (16:45)
--- NOTE | 2020-04-10 16:46 | CON ---
DATE OF CONSULTATION: 04/10/2020 CHIEF COMPLAINT: Abdominal pain. HISTORY OF PRESENT ILLNESS: This is a 64-year-old female who presented with abdominal pain associated with nonbloody diarrhea. She lives in assisted living due to her loss of independence secondary to bipolar schizophrenia. She denies any significant chronic medical problems. Her pain was described as diffuse, 8/10, associated with nausea. No history of inflammatory bowel disease. No previous abdominal surgery. She cannot remember whether she ever had a colonoscopy in the past. PAST MEDICAL HISTORY: Includes chronic pain, schizophrenia, and bipolar. PAST SURGICAL HISTORY: Includes appendectomy, tonsillectomy, and rotator cuff. SOCIAL HISTORY: Smoker. No alcohol. No other drugs. REVIEW OF SYSTEMS: 10-system review of systems is otherwise negative unless described above. PHYSICAL EXAMINATION: VITAL SIGNS: Blood pressure is 99/63, pulse 96, respirations 16. She is afebrile. HEENT: Sclerae anicteric. Oropharynx clear. NECK: No lymphadenopathy. CHEST: Clear. HEART: Regular rate. ABDOMEN: Soft, diffusely tender with localized guarding and peritoneal signs. No abdominal or inguinal hernias. No ischemia or edema to extremities. LABORATORY DATA: Her white blood cell count today is 12, with 23 bands. Creatinine is 0.73. CT scan shows evidence of pneumatosis, air in the retroperitoneum, air in the mediastinum. ASSESSMENT: Likely ischemic event to the rectosigmoid area causing significant pneumatosis and retroperitoneal free air. No evidence of intraabdominal perforation. PLAN: Given her abdominal findings and the significance of the changes on CT, I think she will need a colectomy with colostomy. She does give consent. We will do this today. Job ID: [id number]
[2020-04-10] MEDS ORDERED: hydrALAZINE 20 MG/ML VIAL SLOW IVP PRN (17:48)
[2020-04-10] MEDS: D5 1/2 NS w/20 mEq KCL 1,000 ML IV SCH (18:34)
[2020-04-10] MEDS: Enoxaparin Sodium 40 MG/0.4 ML SYRINGE SC SCH (20:42)
[2020-04-10] MEDS: Famotidine/PF 20 mg/2ml Vial SLOW IVP SCH (20:42)
[2020-04-10] MEDS: Pregabalin 75 MG CAP PO SCH (20:43)
[2020-04-10] MEDS: risperiDONE 3 MG TAB PO SCH (20:43)
[2020-04-10] MEDS: Famotidine 20 MG TAB PO SCH (20:44)
[2020-04-10] MEDS ORDERED: Temazepam 15 MG CAP PO SCH (21:00)
[2020-04-10] MEDS ORDERED: Atorvastatin Calcium 40 MG TAB PO SCH (21:00)
[2020-04-11] MEDS: D5 1/2 NS w/20 mEq KCL 1,000 ML IV SCH ×3 (03:51→21:36)
[2020-04-11] MEDS: Piperacillin/Tazobactam 3.375 GM in Sodium Chloride 0.9% 100 ML IVPB SCH ×3 (05:44→17:49)
[2020-04-11 06:05] LABS: Anion Gap 13 mmol/L (10-20); BUN (Urea Nitrogen) 13 mg/dL (9.8-20.1); Calc. Creatinine Clearance 116 mL/min (70-130); Calcium 8.3 mg/dL (7.8-10.44); Carbon Dioxide 19 mmol/L (23-31); Chloride 105 mmol/L (98-107); Estimated GFR-MDRD 74; Glucose 205 mg/dL (80-115); Potassium 4.2 mmol/L (3.5-5.1); Sodium 133 mmol/L (136-145)
[2020-04-11 06:14] LABS: Band 16 % (5-11); Hypochromia SLIGHT = 6-15 cells (100X) (0-5/hpf); Lymphocytes 9 % (21-51); MDiff Complete? YES; Mean Corpuscular HGB CONC 33.8 g/dL (32.0-36.0); Mean Corpuscular Hemoglobin 32.9 pg (27.0-31.0); Mean Corpuscular Volume 97.3 fL (78.0-98.0); Mean Platelet Volume 9.1 fL (7.4-10.4); Monocytes 5 % (0-10); Neutrophil 70 % (42-75); Platelet Count 163 thou/uL (130-400); Platelet Morphology Comment Appears Adequate; RBC Distribution Width 11.4 % (11.5-14.5); Red Blood Cell (RBC) Count 3.66 mill/uL (4.20-5.40); White Blood Cell (WBC) Count 9.4 thou/uL (4.8-10.8)
[2020-04-11] MEDS: Famotidine 20 MG TAB PO SCH ×2 (08:02→21:33)
[2020-04-11] MEDS: Pregabalin 75 MG CAP PO SCH ×2 (08:02→21:33)
[2020-04-11] MEDS: DULoxetine 30 MG CAP PO SCH (08:02)
[2020-04-11] MEDS: risperiDONE 3 MG TAB PO SCH ×2 (08:03→21:34)
[2020-04-11] MEDS: Famotidine/PF 20 mg/2ml Vial SLOW IVP SCH ×2 (08:04→21:34)
--- NOTE | 2020-04-11 09:12 | OP ---
DATE OF PROCEDURE: 04/10/2020 PREOPERATIVE DIAGNOSES: Peritonitis and ischemic rectosigmoid junction. POSTOPERATIVE DIAGNOSES: Peritonitis and ischemic rectosigmoid junction. PROCEDURES PERFORMED: Exploratory laparotomy, abdominal washout, and rectosigmoid resection with colostomy. ANESTHESIA: General. ESTIMATED BLOOD LOSS: 100 mL. COMPLICATIONS: None. FINDINGS: Rectosigmoid is necrotic posteriorly going down into the pelvis. There was localized stool perforation that was walled off in the pelvis. DESCRIPTION OF PROCEDURE: The patient was taken to the operating room and laid supine on the operating room table. After general anesthetic was obtained, a Callahan was placed. The abdomen was prepped and draped in a sterile fashion. Midline incision was made, cautery dissected down into the abdominal cavity. Bookwalter retractor was placed. Left colon was mobilized along the white line of Toldt. There was some chronic diverticular type changes down in the pelvis. The lower sigmoid has fallen down and has stuck to the rectum, where there was necrosis and perforation contained perforation of stool. This cavity was entered. The stool was all irrigated out. Dissections taken down further onto the rectal surface, where contour stapler was fired across the rectum. The rectosigmoid junction was then pulled up and its mesentery taken using the Impact LigaSure. The left ureter was found and excluded from the dissection. Colon was mobilized up to the left colon. Contour stapler was fired across the distal descending colon. The specimen was sent to [facility] for final diagnosis. The pelvis and abdomen were irrigated using multiple liters of sterile saline until returns were clear. The left colon was mobilized along the white line of Toldt to allow for colostomy. Ellipse of skin was taken out in the left abdomen and a cruciate incision was made in the fascia. The proximal colon was able to brought up as a colostomy. NG tube was felt to be in good position in the stomach. All instrument counts, needle counts, and lap counts were correct. Midline fascia was closed using #1 PDS from the top and the bottom and tied in the middle. Subcutaneous tissues were irrigated. The colostomy was matured in the usual fashion using 3-0 Vicryl and a colostomy device was placed. Midline wound was covered with the wound VAC. The patient was sent to the recovery room in stable condition. All instrument counts, needle counts, and lap counts were correct. Job ID: [id number]
--- NOTE | 2020-04-11 11:39 | PDOC.GSPN ---
Surgery Progress Note: Subj - Subjective Patient reports: no new complaints, tolerating liquids well, still having pain ( patient rated pain 8/10) Narrative: Patient is s/p day 1 from a sigmoid colectomy due to intestinal perforation. She is doing well and tolerating water and ice chips. Surgery Progress Note: Obj - Vital signs Vital signs: Vital Signs - Most Recent Temp Pulse Resp BP Pulse Ox 97.9 F 81 14 114/74 94 L 04/11/20 11:31 04/11/20 11:31 04/11/20 11:31 04/11/20 11:31 04/11/20 11:31 - Physical Exam General: no distress, moderate pain (she states that she is 8/10, but she does not appear distressed) Cardiovascular: regular rate and rhythm Respiratory: clear to auscultation, normal respiratory effort, breath sounds present Abdomen: soft, nondistended, positive bowel sounds, appropriately tender Wound: dressing clean,dry,intact, healing well, wound vac Surgery Progress Note: Results - Labs Result Diagrams: 04/11/20 05:23 04/11/20 05:23 Lab results: Laboratory Results - last 12 hr 04/11/20 04/11/20 05:23 05:23 WBC 9.4 RBC 3.66 L Hgb 12.0 Hct 35.6 L MCV 97.3 MCH 32.9 H MCHC 33.8 RDW 11.4 L Plt Count 163 MPV 9.1 Neutrophils % (Manual) 70 Band Neuts % (Manual) 16 H Lymphocytes % (Manual) 9 L Monocytes % (Manual) 5 Hypochromia SLIGHT = 6-15 cells Plt Morphology Comment Appears Adequate Sodium 133 L Potassium 4.2 Chloride 105 Carbon Dioxide 19 L Anion Gap 13 BUN 13 Creatinine 0.78 Estimated GFR (MDRD) 74 Glucose 205 H Calcium 8.3 Surgery Progress Note: A/P - Problem (1) Bowel perforation Current Visit: Yes Code(s): K63.1 - PERFORATION OF INTESTINE (NONTRAUMATIC) Status: Resolved (2) Pneumatosis of intestines Current Visit: Yes Code(s): K63.89 - OTHER SPECIFIED DISEASES OF INTESTINE Status: Resolved (3) Pneumoperitoneum Current Visit: Yes Code(s): K66.8 - OTHER SPECIFIED DISORDERS OF PERITONEUM Status: Resolved - Plan Plan: Continue on ice chips only. PT consult to get the patient ambulatory. Continue famotidine and Zosyn. Consider adding additional analgesia if her pain persists.
[2020-04-11] MEDS ORDERED: Acetaminophen 325 MG TAB PO PRN (14:37)
--- NOTE | 2020-04-11 14:37 | PDOC.HOSPP ---
- Subjective Encounter Date: 04/11/20 Encounter Time: 09:45 Subjective: pt up in bed no complains - Objective Vital Signs & Weight: Vital Signs (12 hours) Temp Pulse Resp BP Pulse Ox 04/11/20 11:31 97.9 F 81 14 114/74 94 L 04/11/20 08:03 97.8 F 79 18 107/69 96 04/11/20 08:00 96 04/11/20 07:22 98 F 72 12 104/65 95 04/11/20 04:26 97.9 F 80 18 115/72 95 Weight Admit Weight 223 lb 3.2 oz Weight 223 lb 3 oz I&O: 04/10/20 04/11/20 04/12/20 06:59 06:59 06:59 Intake Total 1775 Output Total 1130 Balance 645 Result Diagrams: 04/11/20 05:23 04/11/20 05:23 Hospitalist ROS - Review of Systems Cardiovascular: denies: chest pain, palpitations, orthopnea, paroxysmal noc. dyspnea, edema, light headedness, other Gastrointestinal: denies: nausea, vomiting, abdominal pain, diarrhea, constipation, melena, hematochezia, other Genitourinary: denies: dysuria, frequency, incontinence, hematuria, retention, other - Medication Medications: Active Medications Generic Name Dose Route Start Last Admin Trade Name Ivanq PRN Reason Stop Dose Admin Duloxetine HCl 30 mg 04/11/20 09:00 04/11/20 08:02 Duloxetine 30 Mg Cap PO 30 mg DAILY IFTIKHAR Administration Enoxaparin Sodium 40 mg 04/10/20 21:00 04/10/20 20:42 Enoxaparin Sodium 40 Mg/0.4 Ml Syringe SC 40 mg 2100 IFTIKHAR Administration Famotidine 20 mg 04/10/20 21:00 04/11/20 08:02 Famotidine 20 Mg Tab PO 20 mg Q12HR IFTIKHAR Administration Famotidine 20 mg 04/10/20 21:00 04/11/20 08:04 Famotidine/Pf 20 Mg/2ml Vial SLOW IVP 20 mg Q12HR IFTIKHAR Administration Potassium Chloride/Dextrose/Sod Cl 1,000 mls @ 125 mls/hr 04/10/20 17:48 04/11/20 10:00 D5 1/2 Ns W/20 Meq Kcl IV 1,000 mls .Q8H IFTIKHAR Administration Piperacillin Sod/Tazobactam 100 mls @ 200 mls/hr 04/10/20 18:00 04/11/20 11:42 Sod 3.375 gm/ Sodium Chloride IVPB 100 mls Q6HR IFTIKHAR Administration Pregabalin 300 mg 04/10/20 21:00 04/11/20 08:02 Pregabalin 75 Mg Cap PO 300 mg BID IFTIKHAR Administration Risperidone 3 mg 04/10/20 21:00 04/11/20 08:03 Risperidone 3 Mg Tab PO 3 mg BID IFTIKHAR Administration - Exam Neck: negative: supple, symmetric, no JVD, no thyromegaly, no lymphadenopathy, no carotid bruit, JVD Heart: negative: RRR, no murmur, no gallops, no rubs, normal peripheral pulses, irregular, diminshed peripheral pulses, murmur present, II/IV, III/IV Respiratory: negative: CTAB, no wheezes, no rales, no ronchi, normal chest expansion, no tachypnea, normal percussion, rales, rhonchi, tachypneic, wheezes Gastrointestinal: soft, normal bowel sounds Gastrointestinal - other findings: colostomy and wound vac Hosp A/P (1) Abdominal pain Code(s): R10.9 - UNSPECIFIED ABDOMINAL PAIN Status: Acute (2) Diarrhea Code(s): R19.7 - DIARRHEA, UNSPECIFIED Status: Acute (3) Pneumatosis of intestines Code(s): K63.89 - OTHER SPECIFIED DISEASES OF INTESTINE Status: Resolved (4) Pneumoperitoneum Code(s): K66.8 - OTHER SPECIFIED DISORDERS OF PERITONEUM Status: Resolved (5) History of recurrent TIAs Code(s): Z86.73 - PRSNL HX OF TIA (TIA), AND CEREB INFRC W/O RESID DEFICITS Status: Acute (6) Sepsis Code(s): A41.9 - SEPSIS, UNSPECIFIED ORGANISM Status: Acute (7) Bipolar 1 disorder Code(s): F31.9 - BIPOLAR DISORDER, UNSPECIFIED Status: Acute - Plan We will continue antibiotics for now. Patient will require surgical intervention. Lactic acidosis improving. We will continue home medications. Patient currently n.p.o. 04/11 POD#1 s/p exp laparotomy, abdomen washout and rectosigmoid resection with colostomy. will continue home meds. will get PT/OT to see her. continue abx and dvt ppx.
[2020-04-11] MEDS ORDERED: Nystatin Powder 15 GM BOT TOP PRN (20:20)
[2020-04-11] MEDS: Enoxaparin Sodium 40 MG/0.4 ML SYRINGE SC SCH (21:32)
[2020-04-11] MEDS: diphenhydrAMINE 25 MG CAP PO PRN (21:34)
[2020-04-12] MEDS: Piperacillin/Tazobactam 3.375 GM in Sodium Chloride 0.9% 100 ML IVPB SCH ×4 (00:33→18:14)
[2020-04-12] MEDS: D5 1/2 NS w/20 mEq KCL 1,000 ML IV SCH ×3 (00:37→20:15)
[2020-04-12] MEDS: Famotidine 20 MG TAB PO SCH ×2 (08:21→20:16)
[2020-04-12] MEDS: DULoxetine 30 MG CAP PO SCH (08:21)
[2020-04-12] MEDS: Pregabalin 75 MG CAP PO SCH ×2 (08:21→20:16)
[2020-04-12] MEDS: Famotidine/PF 20 mg/2ml Vial SLOW IVP SCH ×2 (08:22→20:19)
[2020-04-12] MEDS: risperiDONE 3 MG TAB PO SCH ×2 (08:22→20:18)
[2020-04-12] MEDS ORDERED: Non-Formulary Item 1 EACH (Omeprazole [Omeprazole] 40 MG Capsule.Dr) PO SCH (09:00)
--- NOTE | 2020-04-12 09:51 | PRG ---
DATE OF SERVICE: 04/12/2020 SUBJECTIVE: Ms. Ga is awake, alert, talking. She has not gotten out of bed yet. She denies nausea. OBJECTIVE: VITAL SIGNS: Pulse is 82, she is afebrile, respirations 18, blood pressure 158/87. Urine output is 2150 for the overnight shift. ABDOMEN: Soft. The wound VAC is in place. The colostomy mucosa is pink. There is no air or stool in the bag yet. LABORATORY DATA: No new labs today. ASSESSMENT: Postoperative day #2, rectosigmoid colectomy, colostomy. PLAN: Discontinue [employer]. Attempt to start to mobilize. She is very limited in her motivation. I have discussed with the daughter and Case Management. She will go to [facility] in [place] after discharge from the hospital, probably ready to go on this weekend. Job ID: [id number]
[2020-04-12] MEDS: Multivitamin W/ Minerals 1 TAB PO SCH (10:02)
[2020-04-12] MEDS: Aspirin 81 mg Enteric Coated Tablet PO SCH (10:03)
--- NOTE | 2020-04-12 15:49 | PDOC.HOSPP ---
- Subjective Encounter Date: 04/12/20 Encounter Time: 11:45 Subjective: Patient up in bed denies any complaints. - Objective Vital Signs & Weight: Vital Signs (12 hours) Temp Pulse Resp BP Pulse Ox 04/12/20 12:00 99.7 F H 70 18 136/82 96 04/12/20 08:20 96 04/12/20 07:53 97.8 F 82 18 158/87 H 96 04/12/20 04:00 97.7 F 73 18 142/85 H 96 Weight Admit Weight 223 lb 3.2 oz Weight 223 lb 3 oz I&O: 04/11/20 04/12/20 04/13/20 06:59 06:59 06:59 Intake Total 1775 1752 Output Total 1130 2280 Balance 645 -528 Result Diagrams: 04/11/20 05:23 04/11/20 05:23 Hospitalist ROS - Review of Systems Cardiovascular: denies: chest pain, palpitations, orthopnea, paroxysmal noc. dyspnea, edema, light headedness, other Gastrointestinal: denies: nausea, vomiting, abdominal pain, diarrhea, constipation, melena, hematochezia, other Genitourinary: denies: dysuria, frequency, incontinence, hematuria, retention, other - Medication Medications: Active Medications Generic Name Dose Route Start Last Admin Trade Name Ivanq PRN Reason Stop Dose Admin Aspirin 81 mg 04/12/20 09:00 04/12/20 10:03 Aspirin 81 Mg Enteric Coated Tablet PO 81 mg DAILY IFTIKHAR Administration Diphenhydramine HCl 25 mg 04/10/20 16:33 04/11/20 21:34 Diphenhydramine 25 Mg Cap PO 25 mg Q3H PRN Administration Itching Duloxetine HCl 30 mg 04/11/20 09:00 04/12/20 08:21 Duloxetine 30 Mg Cap PO 30 mg DAILY IFTIKHAR Administration Enoxaparin Sodium 40 mg 04/10/20 21:00 04/11/20 21:32 Enoxaparin Sodium 40 Mg/0.4 Ml Syringe SC 40 mg 2100 IFTIKHAR Administration Famotidine 20 mg 04/10/20 21:00 04/12/20 08:21 Famotidine 20 Mg Tab PO 20 mg Q12HR IFTIKHAR Administration Famotidine 20 mg 04/10/20 21:00 04/12/20 08:22 Famotidine/Pf 20 Mg/2ml Vial SLOW IVP Not Given Q12HR IFTIKHAR Piperacillin Sod/Tazobactam 100 mls @ 200 mls/hr 04/10/20 18:00 04/12/20 12:28 Sod 3.375 gm/ Sodium Chloride IVPB 100 mls Q6HR IFTIKHAR Administration Potassium Chloride/Dextrose/Sod Cl 1,000 mls @ 70 mls/hr 04/11/20 15:23 04/12/20 00:37 D5 1/2 Ns W/20 Meq Kcl IV 1,000 mls .[id number] IFTIKHAR Administration Iron/Minerals/Multivitamins 1 tab 04/12/20 09:00 04/12/20 10:02 Multivitamin W/ Minerals 1 Tab PO 1 tab DAILY IFTIKHAR Administration Nystatin 0 gm 04/11/20 20:20 04/11/20 21:35 Nystatin Powder 15 Gm Bot TOP 1 applic BID PRN Administration Topical Irritations Pregabalin 300 mg 04/10/20 21:00 04/12/20 08:21 Pregabalin 75 Mg Cap PO 300 mg BID IFTIKHAR Administration Risperidone 3 mg 04/10/20 21:00 04/12/20 08:22 Risperidone 3 Mg Tab PO 3 mg BID IFTIKHAR Administration - Exam Neck: negative: supple, symmetric, no JVD, no thyromegaly, no lymphadenopathy, no carotid bruit, JVD Heart: negative: RRR, no murmur, no gallops, no rubs, normal peripheral pulses, irregular, diminshed peripheral pulses, murmur present, II/IV, III/IV Respiratory: negative: CTAB, no wheezes, no rales, no ronchi, normal chest expansion, no tachypnea, normal percussion, rales, rhonchi, tachypneic, wheezes Gastrointestinal: soft, diminished bowl sounds Gastrointestinal - other findings: Left colostomy, wound VAC present. Hosp A/P (1) Abdominal pain Code(s): R10.9 - UNSPECIFIED ABDOMINAL PAIN Status: Acute (2) Diarrhea Code(s): R19.7 - DIARRHEA, UNSPECIFIED Status: Acute (3) Pneumatosis of intestines Code(s): K63.89 - OTHER SPECIFIED DISEASES OF INTESTINE Status: Resolved (4) Pneumoperitoneum Code(s): K66.8 - OTHER SPECIFIED DISORDERS OF PERITONEUM Status: Resolved (5) History of recurrent TIAs Code(s): Z86.73 - PRSNL HX OF TIA (TIA), AND CEREB INFRC W/O RESID DEFICITS Status: Acute (6) Sepsis Code(s): A41.9 - SEPSIS, UNSPECIFIED ORGANISM Status: Acute (7) Bipolar 1 disorder Code(s): F31.9 - BIPOLAR DISORDER, UNSPECIFIED Status: Acute - Plan We will continue antibiotics for now. Patient will require surgical interv ention. Lactic acidosis improving. We will continue home medications. Patient currently n.p.o. 04/11 POD#1 s/p exp laparotomy, abdomen washout and rectosigmoid resection with colostomy. will continue home meds. will get PT/OT to see her. continue abx and dvt ppx. 04/12 postop day #2, pathology indicates abscess peritonitis. Will get infectious disease to see this patient. We will continue Zosyn for now. PT OT ordered for this patient. Continue home medications.
[2020-04-12] MEDS: Enoxaparin Sodium 40 MG/0.4 ML SYRINGE SC SCH (20:18)
[2020-04-13] MEDS: Piperacillin/Tazobactam 3.375 GM in Sodium Chloride 0.9% 100 ML IVPB SCH ×5 (00:03→23:44)
[2020-04-13] MEDS: HYDROcodone/Acetaminophen 7.5/325 mg Tablet PO PRN ×3 (00:13→15:53)
--- NOTE | 2020-04-13 00:32 | CON ---
DATE OF CONSULTATION: 04/12/2020 REASON FOR CONSULTATION: Peritonitis following rectosigmoid rupture/perforation with inflammatory process. HISTORY OF PRESENT ILLNESS: A 64-year-old, history of bipolar disorder, schizophrenia and hypertension as well as chronic back pain, who has had two prior admissions; the first one in 2018 with altered mental state and the second one in 2019 for weakness, UTI, hyponatremia and altered mental state as well as polypharmacy. The patient lives by herself in an assisted living in [place], and she does all the activities of daily living by herself reportedly. She presented to the emergency room on April 09, complaining of abdominal pain, pretty much diffuse, associated with diarrhea, which started two or three days before admission. The stools were soft but not watery, and she also had some dysuria. On arrival, her BP was 130/77, heart rate 91, temperature 98.4, O2 saturation 97. The exam was remarkable for abdominal tenderness, which is diffuse, but no distention and no signs of peritonitis. Initial findings included also a sodium of 134, creatinine 1.18, a normal liver profile, albumin 3.7, lactic acid 5.4, white cell count is 18,000, hemoglobin 14, platelets 145, 23% bands. COVID PCR was negative, and she had two sets of blood cultures and thus I do not see a urine culture. A urinalysis was not performed. Abdomen and pelvis CT study demonstrated pneumatosis involving the distal sigmoid colon and upper rectum with extensive gas present within the upper perirectal soft tissue and extending into the retroperitoneum and dissecting into the mediastinum and right hemithorax, extrapleural space, so that led to exploratory laparotomy. The operative note was reviewed that was from day before yesterday, the surgeon was Dr. Fox, so left colon was mobilized and there was evidence of chronic diverticular type changes down in the pelvis. The lower sigmoid had stuck to the rectum and there was evidence of necrosis and perforation of stool. The cavity was entered. Stool was all irrigated, dissections taken down, this segment was removed and a colostomy devised. The pathology has demonstrated a 16 cm bowel segment with abscess and rupture associated with one of the margins in the area of rupture with associated peritonitis, but no malignancy. The patient currently is in the room. She kind of has a flat affect as expected, but she answers the questions very promptly having moderate pain that is being managed with [employer] analgesia. She denies any headaches. No shortness of breath. She has moderate to marked abdominal tenderness, and she is voiding in the diaper. Able to move extremities, some limitation. No dyspnea. No cough. Some back pain. MEDICAL HISTORY: Bipolar disorder, schizophrenia, chronic back pain, neuropathy, degenerative joint disease, COPD, hypertension, GERD. SURGICAL HISTORY: Appendectomy, she had a wrist surgery in the past and left ankle surgery with open reduction and internal fixation. I do not see any history of colonoscopies here. ALLERGIES: CLINDAMYCIN, SULFA DRUGS. SOCIAL HISTORY: Quit smoking three months ago. She lives in an assisted living facility in [place] by herself. CURRENT MEDICATIONS: 1. Inhalers. 2. Aspirin. 3. Pepcid. 4. Fentanyl. 5. [place]. 6. Narcan. 7. Zofran. 8. Zosyn. 9. Risperidone. PHYSICAL EXAMINATION: VITAL SIGNS: Temperature max 99.1 to 99.7, BP 130/82, heart rate 70, respiratory rate 18, O2 saturation 96. GENERAL: She does not appear in any acute distress. She has a peripheral IV access. Callahan catheter has been removed. HEENT: Ocular movements conjugate. Oral cavity with no remaining teeth. NECK: Supple. No jugular venous distention. LUNGS: Symmetric. Clear breath sounds. HEART: S1 and S2. Regular rate. No S3 or S4. ABDOMEN: Not distended. There is a midline negative pressure dressing and the colostomy is diffusely tender, moderately so. No bladder distention. EXTREMITIES: Osteoarthrosis in knees and ankles. Pulses are 1+ in dorsalis pedis. No edema. Able to move extremities with limitation. NEUROLOGIC: She is awake, knows her name, she knows where she is and the date. Quite flat affect. LABORATORY DATA: White cell count is down from 18 to 9.4, hemoglobin 12, platelets 163. Sodium 133, creatinine 0.78. Liver profile normal. Blood culture, no growth at 48 hours. ASSESSMENT: Schizophrenia; chronic obstructive pulmonary disease; chronic smoking; likely constipation with perforation of the colon, either diverticular perforation or just from the stercoral colitis. Necrosis was not found except for the only area where the perforation occurred, probably from the pressure from fecal material, so this does not appear to be a vascular problem, but more of a local complication related to constipation as the more likely scenario. Management now should be simplified now that Dr. Fox has removed the diseased area. Duration of antimicrobial therapy should be relatively short and the current choice is appropriate. End points would include inflamm markers, clinical exam, imaging fu. She is at risk for formation of walled off abscess. No evidence of colo-vesical fistula. The extension of air towards mediastinum would raise the possibility of mediastinitis in the future. Job ID: [id number] [facility]
[2020-04-13] MEDS: Fentanyl 100 MCG/2 ML VIAL SLOW IVP PRN ×2 (03:55→08:22)
[2020-04-13 06:10] LABS: #Eosinphils 0.1 thou/uL (0.0-0.7); #Lymphocytes 1.5 thou/uL (1.20-3.40); #Monocytes 0.8 thou/uL (0.11-0.59); #Neutrophils 7.6 thou/uL (1.40-6.50); %Basophils 0.1 % (0.0-1.0); %Eosinophils 1.2 % (0.0-10.0); %Lymphocytes 15.3 % (21.0-51.0); %Monocytes 7.7 % (0.0-10.0); %Neutrophils 75.8 % (42.0-75.0); Mean Corpuscular HGB CONC 32.9 g/dL (32.0-36.0); Mean Corpuscular Volume 97.4 fL (78.0-98.0); Mean Platelet Volume 8.2 fL (7.4-10.4); Platelet Count 210 thou/uL (130-400); RBC Distribution Width 11.5 % (11.5-14.5); Red Blood Cell (RBC) Count 3.74 mill/uL (4.20-5.40); White Blood Cell (WBC) Count 10.1 thou/uL (4.8-10.8)
[2020-04-13 06:26] LABS: ALT (SGPT) 10 U/L (8-55); AST (SGOT) 16 U/L (5-34); Albumin 2.8 g/dL (3.4-4.8); Alkaline Phosphatase 39 U/L (40-110); Anion Gap 10 mmol/L (10-20); BUN (Urea Nitrogen) 10 mg/dL (9.8-20.1); Bilirubin, Total 0.7 mg/dL (0.2-1.2); Calc. Creatinine Clearance 159 mL/min (70-130); Calcium 7.3 mg/dL (7.8-10.44); Carbon Dioxide 23 mmol/L (23-31); Chloride 104 mmol/L (98-107); Estimated GFR-MDRD Greater than 90; Globulin 2.2 g/dL (2.4-3.5); Glucose 157 mg/dL (80-115); Potassium 3.6 mmol/L (3.5-5.1); Sodium 133 mmol/L (136-145)
[2020-04-13] MEDS: Pregabalin 75 MG CAP PO SCH ×2 (08:26→20:52)
[2020-04-13] MEDS: risperiDONE 3 MG TAB PO SCH ×2 (08:26→20:53)
[2020-04-13] MEDS: Famotidine 20 MG TAB PO SCH ×2 (08:26→20:51)
[2020-04-13] MEDS: Famotidine/PF 20 mg/2ml Vial SLOW IVP SCH ×2 (08:26→20:51)
[2020-04-13] MEDS: Aspirin 81 mg Enteric Coated Tablet PO SCH (08:26)
[2020-04-13] MEDS: Multivitamin W/ Minerals 1 TAB PO SCH (08:26)
[2020-04-13] MEDS: DULoxetine 30 MG CAP PO SCH (08:26)
[2020-04-13] MEDS: D5 1/2 NS w/20 mEq KCL 1,000 ML IV SCH ×2 (08:35→17:03)
[2020-04-13] MEDS ORDERED: Milk Of Magnesia 30 ML UDCUP PO SCH (15:00)
--- NOTE | 2020-04-13 15:15 | PRG ---
DATE OF SERVICE: 04/13/2020 SUBJECTIVE: Ms. Ga is very limited on getting out of bed because she does not want to. She is tolerating the full liquid diet. She has stool in her bag. Her wound has a VAC. ASSESSMENT: Postop colectomy, colostomy. PLAN: We will give her a dose of milk of magnesia given that she had such hard stool in her residual colon. I suspect to be able to advance her diet over the weekend, probably fci on Thursday. Job ID: [id number]
--- NOTE | 2020-04-13 16:23 | PDOC.HOSPP ---
- Subjective Encounter Date: 04/13/20 Encounter Time: 10:30 Subjective: Patient up in bed states that she did not sleep well last night. - Objective Vital Signs & Weight: Vital Signs (12 hours) Temp Pulse Resp BP Pulse Ox 04/13/20 08:00 97 04/13/20 07:37 97.8 F 74 20 133/83 97 Weight Admit Weight 223 lb 3.2 oz Weight 223 lb 3 oz I&O: 04/12/20 04/13/20 04/14/20 06:59 06:59 06:59 Intake Total 1752 1900 360 Output Total 2280 450 2450 Balance -528 3420 -2939 Result Diagrams: 04/13/20 05:46 04/13/20 05:46 Hospitalist ROS - Review of Systems Cardiovascular: denies: chest pain, palpitations, orthopnea, paroxysmal noc. dyspnea, edema, light headedness, other Gastrointestinal: denies: nausea, vomiting, abdominal pain, diarrhea, constipation, melena, hematochezia, other Genitourinary: denies: dysuria, frequency, incontinence, hematuria, retention, other - Medication Medications: Active Medications Generic Name Dose Route Start Last Admin Trade Name Freq PRN Reason Stop Dose Admin Hydrocodone Bitart/Acetaminophen 2 tab 04/12/20 09:32 04/13/20 15:53 Hydrocodone/Acetaminophen 7.5/325 Mg Tablet PO 2 tab Q6H PRN Administration Moderate Pain (4-6) Aspirin 81 mg 04/12/20 09:00 04/13/20 08:26 Aspirin 81 Mg Enteric Coated Tablet PO 81 mg DAILY IFTIKHAR Administration Diphenhydramine HCl 25 mg 04/10/20 16:33 04/11/20 21:34 Diphenhydramine 25 Mg Cap PO 25 mg Q3H PRN Administration Itching Duloxetine HCl 30 mg 04/11/20 09:00 04/13/20 08:26 Duloxetine 30 Mg Cap PO 30 mg DAILY IFTIKHAR Administration Enoxaparin Sodium 40 mg 04/10/20 21:00 04/12/20 20:18 Enoxaparin Sodium 40 Mg/0.4 Ml Syringe SC 40 mg 2100 IFTIKHAR Administration Famotidine 20 mg 04/10/20 21:00 04/13/20 08:26 Famotidine 20 Mg Tab PO 20 mg Q12HR IFTIKHAR Administration Famotidine 20 mg 04/10/20:00 04/13/20 08:26 Famotidine/Pf 20 Mg/2ml Vial SLOW IVP Not Given Q12HR [facility] Fentanyl 25 mcg 04/12/20 09:32 04/13/20 08:22 Fentanyl 100 Mcg/2 Ml Vial SLOW IVP 25 mcg Q2H PRN Administration Mild Pain (1-3) Piperacillin Sod/Tazobactam 100 mls @ 200 mls/hr 04/10/20 18:00 04/13/20 11:36 Sod 3.375 gm/ Sodium Chloride IVPB 100 mls Q6HR IFTIKHAR Administration Iron/Minerals/Multivitamins 1 tab 04/12/20 09:00 04/13/20 08:26 Multivitamin W/ Minerals 1 Tab PO 1 tab DAILY IFTIKHAR Administration Magnesium Hydroxide 30 ml 04/13/20 15:00 04/13/20 15:43 Milk Of Magnesia 30 Ml Udcup PO 04/13/20 17:00 30 ml NOW IFTIKHAR Administration Nystatin 0 gm 04/11/20 20:20 04/11/20 21:35 Nystatin Powder 15 Gm Bot TOP 1 applic BID PRN Administration Topical Irritations Pregabalin 300 mg 04/10/20 21:00 04/13/20 08:26 Pregabalin 75 Mg Cap PO 300 mg BID IFTIKHAR Administration Risperidone 3 mg 04/10/20 21:00 04/13/20 08:26 Risperidone 3 Mg Tab PO 3 mg BID IFTIKHAR Administration - Exam Neck: negative: supple, symmetric, no JVD, no thyromegaly, no lymphadenopathy, no carotid bruit, JVD Heart: negative: RRR, no murmur, no gallops, no rubs, normal peripheral pulses, irregular, diminshed peripheral pulses, murmur present, II/IV, III/IV Respiratory: negative: CTAB, no wheezes, no rales, no ronchi, normal chest expansion, no tachypnea, normal percussion, rales, rhonchi, tachypneic, wheezes Gastrointestinal: soft, normal bowel sounds Gastrointestinal - other findings: colostomy and daniel drain Hosp A/P (1) Abdominal pain Code(s): R10.9 - UNSPECIFIED ABDOMINAL PAIN Status: Acute (2) Diarrhea Code(s): R19.7 - DIARRHEA, UNSPECIFIED Status: Acute (3) Pneumatosis of intestines Code(s): K63.89 - OTHER SPECIFIED DISEASES OF INTESTINE Status: Resolved (4) Pneumoperitoneum Code(s): K66.8 - OTHER SPECIFIED DISORDERS OF PERITONEUM Status: Resolved (5) History of recurrent TIAs Code(s): Z86.73 - PRSNL HX OF TIA (TIA), AND CEREB INFRC W/O RESID DEFICITS Status: Acute (6) Sepsis Code(s): A41.9 - SEPSIS, UNSPECIFIED ORGANISM Status: Acute (7) Bipolar 1 disorder Code(s): F31.9 - BIPOLAR DISORDER, UNSPECIFIED Status: Acute - Plan We will continue antibiotics for now. Patient will require surgical intervention. Lactic acidosis improving. We will continue home medications. Patient currently n.p.o. 04/11 POD#1 s/p exp laparotomy, abdomen washout and rectosigmoid resection with colostomy. will continue home meds. will get PT/OT to see her. continue abx and dvt ppx. 04/12 postop day #2, pathology indicates abscess peritonitis. Will get infectious disease to see this patient. We will continue Zosyn for now. PT OT ordered for this patient. Continue home medications. 04/13 postop day #3. Patient tolerating full liquid diet well. Spoke with surgery possible discharge on Thursday. PT OT ordered. We will continue Zosyn for now. We will add melatonin for sleep at night. Pathology indicates abscess with rupture associated with peritonitis. Negative for dysplasia or malignancy.
[2020-04-13] MEDS: Enoxaparin Sodium 40 MG/0.4 ML SYRINGE SC SCH (20:51)
[2020-04-14] MEDS: HYDROcodone/Acetaminophen 7.5/325 mg Tablet PO PRN ×3 (03:27→17:31)
[2020-04-14] MEDS: D5 1/2 NS w/20 mEq KCL 1,000 ML IV SCH ×2 (05:13→15:35)
[2020-04-14] MEDS: Piperacillin/Tazobactam 3.375 GM in Sodium Chloride 0.9% 100 ML IVPB SCH ×4 (05:13→23:27)
[2020-04-14] MEDS: Pregabalin 75 MG CAP PO SCH ×2 (09:15→19:50)
[2020-04-14] MEDS: Famotidine/PF 20 mg/2ml Vial SLOW IVP SCH ×2 (09:16→19:50)
[2020-04-14] MEDS: risperiDONE 3 MG TAB PO SCH ×2 (09:16→19:51)
[2020-04-14] MEDS: Multivitamin W/ Minerals 1 TAB PO SCH (09:16)
[2020-04-14] MEDS: Famotidine 20 MG TAB PO SCH ×2 (09:16→19:50)
[2020-04-14] MEDS: DULoxetine 30 MG CAP PO SCH (09:16)
[2020-04-14] MEDS: Aspirin 81 mg Enteric Coated Tablet PO SCH (09:16)
[2020-04-14] MEDS: Fentanyl 100 MCG/2 ML VIAL SLOW IVP PRN ×2 (10:37→22:40)
--- NOTE | 2020-04-14 16:40 | PDOC.HOSPP ---
- Subjective Encounter Date: 04/14/20 Encounter Time: 16:39 Subjective: Ms. Ga was seen today in follow-up of bowel perforation and peritonitis. She notes some abdominal discomfort. She denies nausea or vomiting. She also notes at times she feels short of breath. - Objective Vital Signs & Weight: Vital Signs (12 hours) Temp Pulse Resp BP Pulse Ox 04/14/20 08:00 95 04/14/20 07:44 98.2 F 81 18 108/72 95 Weight Admit Weight 223 lb 3.2 oz Weight 223 lb 3 oz I&O: 04/13/20 04/14/20 04/15/20 06:59 06:59 06:59 Intake Total 1900 1270 Output Total 450 2910 Balance 1450 -1640 Result Diagrams: 04/13/20 05:46 04/13/20 05:46 Hospitalist ROS - Medication Medications: Active Medications Generic Name Dose Route Start Last Admin Trade Name Freq PRN Reason Stop Dose Admin Hydrocodone Bitart/Acetaminophen 1 tab 04/12/20 09:32 04/14/20 09:18 Hydrocodone/Acetaminophen 7.5/325 Mg Tablet PO 1 tab Q6H PRN Administration Mild Pain (1-3) Hydrocodone Bitart/Acetaminophen 2 tab 04/12/20 09:32 04/14/20 03:27 Hydrocodone/Acetaminophen 7.5/325 Mg Tablet PO 2 tab Q6H PRN Administration Moderate Pain (4-6) Aspirin 81 mg 04/12/20 09:00 04/14/20 09:16 Aspirin 81 Mg Enteric Coated Tablet PO 81 mg DAILY IFTIKHAR Administration Diphenhydramine HCl 25 mg 04/10/20 16:33 04/11/20 21:34 Diphenhydramine 25 Mg Cap PO 25 mg Q3H PRN Administration Itching Duloxetine HCl 30 mg 04/11/20 09:00 04/14/20 09:16 Duloxetine 30 Mg Cap PO 30 mg DAILY IFTIKHAR Administration Enoxaparin Sodium 40 mg 04/10/20 21:00 04/13/20 20:51 Enoxaparin Sodium 40 Mg/0.4 Ml Syringe SC 40 mg 2100 IFTIKHAR Administration Famotidine 20 mg 04/10/20 21:00 04/14/20 09:16 Famotidine 20 Mg Tab PO 20 mg Q12HR IFTIKHAR Administration Famotidine 20 mg 04/10/20 21:00 04/14/20 09:16 Famotidine/Pf 20 Mg/2ml Vial SLOW IVP Not Given Q12HR IFTIKHAR Fentanyl 25 mcg 04/12/20 09:32 04/14/20 10:37 Fentanyl 100 Mcg/2 Ml Vial SLOW IVP 25 mcg Q2H PRN Administration Mild Pain (1-3) Piperacillin Sod/Tazobactam 100 mls @ 200 mls/hr 04/10/20 18:00 04/14/20 11:45 Sod 3.375 gm/ Sodium Chloride IVPB 100 mls Q6HR IFTIKHAR Administration Potassium Chloride/Dextrose/Sod Cl 1,000 mls @ 50 mls/hr 04/13/20 16:19 04/14/20 15:35 D5 1/2 Ns W/20 Meq Kcl IV Not Given .Q20H IFTIKHAR Iron/Minerals/Multivitamins 1 tab 04/12/20 09:00 04/14/20 09:16 Multivitamin W/ Minerals 1 Tab PO 1 tab DAILY IFTIKHAR Administration Nystatin 0 gm 04/11/20 20:20 04/11/20 21:35 Nystatin Powder 15 Gm Bot TOP 1 applic BID PRN Administration Topical Irritations Pregabalin 300 mg 04/10/20 21:00 04/14/20 09:15 Pregabalin 75 Mg Cap PO 300 mg BID IFTIKHAR Administration Risperidone 3 mg 04/10/20 21:00 04/14/20 09:16 Risperidone 3 Mg Tab PO 3 mg BID IFTIKHAR Administration - Exam Eye: PERRL, anicteric sclera Heart: RRR, no murmur, no gallops, no rubs, normal peripheral pulses Respiratory: CTAB, no wheezes, no rales, no ronchi, normal chest expansion, no tachypnea, normal percussion Gastrointestinal: soft, non-tender, non-distended, normal bowel sounds, no palpable masses, no hepatomegaly, no splenomegaly Extremities: no cyanosis, no edema Hosp A/P (1) Bipolar 1 disorder Code(s): F31.9 - BIPOLAR DISORDER, UNSPECIFIED Status: Acute (2) Pneumomediastinum Code(s): J98.2 - INTERSTITIAL EMPHYSEMA Status: Acute (3) Bowel perforation Code(s): K63.1 - PERFORATION OF INTESTINE (NONTRAUMATIC) Status: Resolved - Plan * Bowel perforation with peritonitits, s/p exploratory lap, and abdominal washout, and sigmoid resection. * She has a wound vac placed * Continue with Zosyn IV * Patient reports some dyspnea and a history of " asthma"- will add Duonebs as needed * Mobilize, and continue incentive spirometry * Likely usp placement
[2020-04-14] MEDS: Enoxaparin Sodium 40 MG/0.4 ML SYRINGE SC SCH (19:50)
[2020-04-14] MEDS: Melatonin 3 MG TAB PO PRN (19:51)
[2020-04-15] MEDS: HYDROcodone/Acetaminophen 7.5/325 mg Tablet PO PRN ×3 (04:12→23:51)
[2020-04-15] MEDS: D5 1/2 NS w/20 mEq KCL 1,000 ML IV SCH (04:31)
[2020-04-15] MEDS: Piperacillin/Tazobactam 3.375 GM in Sodium Chloride 0.9% 100 ML IVPB SCH ×4 (05:12→23:48)
[2020-04-15] MEDS: Fentanyl 100 MCG/2 ML VIAL SLOW IVP PRN ×4 (07:42→20:04)
[2020-04-15] MEDS: DULoxetine 30 MG CAP PO SCH (07:45)
[2020-04-15] MEDS: Pregabalin 75 MG CAP PO SCH ×2 (07:45→20:03)
[2020-04-15] MEDS: Multivitamin W/ Minerals 1 TAB PO SCH (07:45)
[2020-04-15] MEDS: Aspirin 81 mg Enteric Coated Tablet PO SCH (07:45)
[2020-04-15] MEDS: Famotidine 20 MG TAB PO SCH ×2 (07:45→20:03)
[2020-04-15] MEDS: risperiDONE 3 MG TAB PO SCH ×2 (07:45→20:04)
[2020-04-15] MEDS: Famotidine/PF 20 mg/2ml Vial SLOW IVP SCH ×2 (07:46→20:03)
--- NOTE | 2020-04-15 08:31 | PDOC.GSPN ---
Surgery Progress Note: Subj - Subjective Patient reports: no new complaints ( Zhao full liquids without difficulty) Surgery Progress Note: Obj - Vital signs Vital signs: Vital Signs - Most Recent Temp Pulse Resp BP Pulse Ox 98.0 F 80 16 113/72 96 04/15/20 07:38 04/15/20 07:38 04/15/20 07:38 04/15/20 07:38 04/15/20 08:00 - Physical Exam General: no distress Cardiovascular: regular rate and rhythm Respiratory: clear to auscultation Abdomen: soft, nondistended Wound: wound vac, ostomy/colostomy (air and stool in bag) Surgery Progress Note: Results - Labs Result Diagrams: 04/13/20 05:46 04/13/20 05:46 Surgery Progress Note: A/P - Problem (1) Diverticulitis Current Visit: Yes Code(s): K57.92 - DVTRCLI OF INTEST, PART UNSP, W/O PERF OR ABSCESS W/O BLEED Status: Acute - Plan Plan: s/p colectomy/colostomy -vac change today -advance to gi soft diet -ready for snu tomorrow
[2020-04-15 08:53] LABS: Anion Gap 13 mmol/L (10-20); BUN (Urea Nitrogen) 6 mg/dL (9.8-20.1); Calc. Creatinine Clearance 154 mL/min (70-130); Calcium 7.8 mg/dL (7.8-10.44); Carbon Dioxide 23 mmol/L (23-31); Chloride 101 mmol/L (98-107); Estimated GFR-MDRD Greater than 90; Glucose 159 mg/dL (80-115); Potassium 3.7 mmol/L (3.5-5.1); Sodium 133 mmol/L (136-145)
[2020-04-15 09:07] LABS: Band 10 % (5-11); Eosinophils 5 % (0-10); Hemoglobin 11.5 g/dL (12.0-16.0); Lymphocytes 13 % (21-51); MDiff Complete? YES; Mean Corpuscular HGB CONC 33.8 g/dL (32.0-36.0); Mean Corpuscular Volume 97.5 fL (78.0-98.0); Mean Platelet Volume 8.1 fL (7.4-10.4); Monocytes 2 % (0-10); Neutrophil 70 % (42-75); Nucleated RBC 1 % (0); Platelet Count 256 thou/uL (130-400); RBC Distribution Width 11.3 % (11.5-14.5)
--- NOTE | 2020-04-15 15:43 | PRG ---
DATE OF SERVICE: 04/15/2020 SUBJECTIVE: She is lying flat in bed. She is awake, flat affect as expected, but does not appear in distress. No abdominal pain. No respiratory symptoms. She is drinking fluids without issues. OBJECTIVE: VITAL SIGNS: T-max 98.8, blood pressure 113/72, heart rate 80, respiratory rate 16, and O2 saturation 96. GENERAL: Appears in no distress. She has midline negative pressure dressing Mychal drain or Rich drain. The drainage there is serous and appears benign drainage. LUNGS: Symmetric, clear breath sounds. HEART: S1 and S2. Regular rate. She is voiding in the diaper without difficulty. I's and O's are positive and negative for the past 3 days. LUNGS: Clear. ABDOMEN: Mildly distended, but not tender. EXTREMITIES: Moves extremities equally. LABORATORY DATA: White cell count of 14,000, hemoglobin 11, platelets 256, bands are down to 10%. Creatinine 0.59. ASSESSMENT AND DISCUSSION: Schizophrenia, chronic obstructive pulmonary disease, chronic smoking, constipation, perforation of colon or diverticular perforation, probably just stercoral colitis and benign progress so far. The patient is currently on Zosyn and antimicrobial therapy a few more days and should be able to discontinue them since source control appears to have been achieved. Job ID: [id number] [facility]
--- NOTE | 2020-04-15 16:39 | PDOC.HOSPP ---
- Subjective Encounter Date: 04/15/20 Encounter Time: 16:37 Subjective: Ms. Vinson was seen today in follow-up of bowel perforation and peritonitis. she says the abdominal pain is a little better today. She is tolerating p.o. - Objective Vital Signs & Weight: Vital Signs (12 hours) Temp Pulse Resp BP Pulse Ox 04/15/20 08:00 96 04/15/20 07:38 98.0 F 80 16 113/72 96 Weight Admit Weight 223 lb 3.2 oz Weight 223 lb 3 oz I&O: 04/14/20 04/15/20 04/16/20 06:59 06:59 06:59 Intake Total 1270 1350 680 Output Total 2910 1020 800 Balance -1640 330 -120 Result Diagrams: 04/15/20 08:20 04/15/20 08:20 Hospitalist ROS - Medication Medications: Active Medications Generic Name Dose Route Start Last Admin Trade Name Freq PRN Reason Stop Dose Admin Hydrocodone Bitart/Acetaminophen 1 tab 04/12/20 09:32 04/15/20 13:43 Hydrocodone/Acetaminophen 7.5/325 Mg Tablet PO 1 tab Q6H PRN Administration Mild Pain (1-3) Hydrocodone Bitart/Acetaminophen 2 tab 04/12/20 09:32 04/15/20 04:12 Hydrocodone/Acetaminophen 7.5/325 Mg Tablet PO 2 tab Q6H PRN Administration Moderate Pain (4-6) Albuterol/Ipratropium 3 ml 04/14/20 16:43 04/14/20 20:05 Ipratropium/Albuterol Sulfate 3 Ml Neb NEB 3 ml [id number] PRN Administration SOB &/or Wheezing Aspirin 81 mg 04/12/20 09:00 04/15/20 07:45 Aspirin 81 Mg Enteric Coated Tablet PO 81 mg DAILY IFTIKHAR Administration Diphenhydramine HCl 25 mg 04/10/20 16:33 04/11/20 21:34 Diphenhydramine 25 Mg Cap PO 25 mg Q3H PRN Administration Itching Duloxetine HCl 30 mg 04/11/20 09:00 04/15/20 07:45 Duloxetine 30 Mg Cap PO 30 mg DAILY IFTIKHAR Administration Enoxaparin Sodium 40 mg 04/10/20 21:00 04/14/20 19:50 Enoxaparin Sodium 40 Mg/0.4 Ml Syringe SC 40 mg 2100 IFTIKHAR Administration Famotidine 20 mg 04/10/20 21:00 04/15/20 07:45 Famotidine 20 Mg Tab PO 20 mg Q12HR IFTIKHAR Administration Famotidine 20 mg 04/10/20 21:00 04/15/20 07:46 Famotidine/Pf 20 Mg/2ml Vial SLOW IVP Not Given Q12HR IFTIKHAR Fentanyl 25 mcg 04/12/20 09:32 04/15/20 15:41 Fentanyl 100 Mcg/2 Ml Vial SLOW IVP 25 mcg Q2H PRN Administration Mild Pain (1-3) Piperacillin Sod/Tazobactam 100 mls @ 200 mls/hr 04/10/20 18:00 04/15/20 12:31 Sod 3.375 gm/ Sodium Chloride IVPB 100 mls Q6HR IFTIKHAR Administration Potassium Chloride/Dextrose/Sod Cl 1,000 mls @ 50 mls/hr 04/13/20 16:19 04/15/20 04:31 D5 1/2 Ns W/20 Meq Kcl IV 1,000 mls .Q20H IFTIKHAR Administration Iron/Minerals/Multivitamins 1 tab 04/12/20 09:00 04/15/20 07:45 Multivitamin W/ Minerals 1 Tab PO 1 tab DAILY IFTIKHAR Administration Melatonin 3 mg 04/13/20 16:18 04/14/20 19:51 Melatonin 3 Mg Tab PO 3 mg HS PRN Administration Insomnia Nystatin 0 gm 04/11/20 20:20 04/11/20 21:35 Nystatin Powder 15 Gm Bot TOP 1 applic BID PRN Administration Topical Irritations Pregabalin 300 mg 04/10/20 21:00 04/15/20 07:45 Pregabalin 75 Mg Cap PO 300 mg BID IFTIKHAR Administration Risperidone 3 mg 04/10/20 21:00 04/15/20 07:45 Risperidone 3 Mg Tab PO 3 mg BID IFTIKHAR Administration - Exam Eye: PERRL, anicteric sclera Heart: RRR, no murmur, no gallops, no rubs, normal peripheral pulses Respiratory: CTAB (with occasional wheeze,), no rales, no ronchi Gastrointestinal: soft, non-tender, non-distended, normal bowel sounds, no palpable masses, no hepatomegaly Extremities: no cyanosis, no edema Hosp A/P (1) Bipolar 1 disorder Code(s): F31.9 - BIPOLAR DISORDER, UNSPECIFIED Status: Acute (2) Pneumomediastinum Code(s): J98.2 - INTERSTITIAL EMPHYSEMA Status: Acute (3) Bowel perforation Code(s): K63.1 - PERFORATION OF INTESTINE (NONTRAUMATIC) Status: Resolved - Plan * Bowel perforation with peritonitits, s/p exploratory lap, and abdominal washout, and sigmoid resection. * She had wound vac changed today * Continue with Zosyn IV * COPD- stable- continue Duonebs * Mobilize, and continue incentive spirometry * Anticipate discharge to [facility] tomorrow
[2020-04-15] MEDS: Enoxaparin Sodium 40 MG/0.4 ML SYRINGE SC SCH (20:03)
[2020-04-15] MEDS: Melatonin 3 MG TAB PO PRN (21:40)
[2020-04-15] MEDS: diphenhydrAMINE 25 MG CAP PO PRN (21:40)
[2020-04-16] MEDS: D5 1/2 NS w/20 mEq KCL 1,000 ML IV SCH (04:14)
[2020-04-16] MEDS: HYDROcodone/Acetaminophen 7.5/325 mg Tablet PO PRN ×2 (05:54→12:20)
[2020-04-16] MEDS: Piperacillin/Tazobactam 3.375 GM in Sodium Chloride 0.9% 100 ML IVPB SCH ×2 (05:54→12:21)
[2020-04-16 08:27] LABS: #Eosinphils 0.5 thou/uL (0.0-0.7); #Lymphocytes 1.6 thou/uL (1.20-3.40); #Monocytes 0.8 thou/uL (0.11-0.59); #Neutrophils 8.3 thou/uL (1.40-6.50); %Basophils 0.3 % (0.0-1.0); %Eosinophils 4.1 % (0.0-10.0); %Lymphocytes 14.5 % (21.0-51.0); %Monocytes 6.9 % (0.0-10.0); %Neutrophils 74.2 % (42.0-75.0); Hemoglobin 11.3 g/dL (12.0-16.0); Mean Corpuscular Hemoglobin 32.2 pg (27.0-31.0); Mean Corpuscular Volume 97.4 fL (78.0-98.0); Mean Platelet Volume 7.6 fL (7.4-10.4); Platelet Count 293 thou/uL (130-400); RBC Distribution Width 11.4 % (11.5-14.5); Red Blood Cell (RBC) Count 3.52 mill/uL (4.20-5.40); White Blood Cell (WBC) Count 11.2 thou/uL (4.8-10.8)
[2020-04-16] MEDS: DULoxetine 30 MG CAP PO SCH (08:28)
[2020-04-16] MEDS: Multivitamin W/ Minerals 1 TAB PO SCH (08:28)
[2020-04-16] MEDS: Famotidine/PF 20 mg/2ml Vial SLOW IVP SCH (08:28)
[2020-04-16] MEDS: Famotidine 20 MG TAB PO SCH (08:28)
[2020-04-16] MEDS: Aspirin 81 mg Enteric Coated Tablet PO SCH (08:28)
[2020-04-16] MEDS: risperiDONE 3 MG TAB PO SCH (08:29)
[2020-04-16] MEDS: Pregabalin 75 MG CAP PO SCH (08:32)
[2020-04-16] MEDS: Fentanyl 100 MCG/2 ML VIAL SLOW IVP PRN ×2 (13:19→17:33)
[2020-04-16] MEDS ORDERED: Zolpidem Tartrate 5 MG TAB PO PRN (13:29)
--- NOTE | 2020-04-16 13:30 | PDOC.GSPN ---
Surgery Progress Note: Subj - Subjective Patient reports: no new complaints, tolerating a regular diet Surgery Progress Note: Obj - Vital signs Vital signs: Vital Signs - Most Recent Temp Pulse Resp BP Pulse Ox 97.8 F 84 20 131/78 98 04/16/20 07:58 04/16/20 07:58 04/16/20 07:58 04/16/20 07:58 04/16/20 07:58 - Physical Exam General: no distress Cardiovascular: regular rate and rhythm Respiratory: clear to auscultation Abdomen: soft, nondistended Wound: wound vac Surgery Progress Note: Results - Labs Result Diagrams: 04/16/20 08:16 04/15/20 08:20 Lab results: Laboratory Results - last 12 hr 04/16/20 08:16 WBC 11.2 H RBC 3.52 L Hgb 11.3 L Hct 34.3 L MCV 97.4 MCH 32.2 H MCHC 33.0 RDW 11.4 L Plt Count 293 MPV 7.6 Neutrophils % 74.2 Lymphocytes % 14.5 L Monocytes % 6.9 Eosinophils % 4.1 Basophils % 0.3 Neutrophils # 8.3 H Lymphocytes # 1.6 Monocytes # 0.8 H Eosinophils # 0.5 Basophils # 0.0 Surgery Progress Note: A/P - Problem (1) Diverticulitis Current Visit: Yes Code(s): K57.92 - DVTRCLI OF INTEST, PART UNSP, W/O PERF OR ABSCESS W/O BLEED Status: Acute - Plan Plan: Doing well. Zhao diet -ok to transfer to alf. -would change antibiotics to po levaquin flagyl and take for one more week.
[2020-04-16] MEDS ORDERED: metroNIDAZOLE 500 MG TAB PO SCH (15:00)
[2020-04-16 18:26] VITALS: TEMP 98.2
[2020-04-16 18:27] VITALS: BP 130/78
--- NOTE | 2020-04-17 03:45 | DIS ---
DATE OF ADMISSION: 04/09/2020 DATE OF DISCHARGE: 04/16/2020 DISCHARGE DISPOSITION: To the longterm facility in [place]. DISCHARGE DIAGNOSES: 1. Pneumoperitoneum. 2. Bowel perforation. 3. Stercoral colitis. 4. Bipolar disorder. 5. Schizophrenia. 6. Chronic obstructive pulmonary disease. 7. Chronic low back pain. DISCHARGE MEDICATIONS: Include; 1. Pepcid 20 mg p.o. b.i.d. 2. Nystatin powder 60 g twice a day. 3. Chrisney 7.5/325, 1-2 tablets q.6h as needed. 4. Melatonin 3 mg p.o. at bedtime. 5. Lovenox 40 mg subcu daily. 6. Levaquin 500 mg p.o. daily. 7. Metronidazole 500 mg p.o. t.i.d. 8. Aspirin 81 mg p.o. daily. 9. Risperidone 3 mg p.o. b.i.d. 10. Raloxifene 60 mg p.o. daily. 11. Multivitamins with minerals, one tablet daily. 12. Lyrica 300 mg p.o. b.i.d. 13. Lotrimin cream one application twice a day. 14. Flonase nasal spray one spray in each nares b.i.d. 15. Cymbalta 30 mg p.o. daily. 16. Atrovent one puff q.i.d. 17. Atorvastatin 40 mg p.o. at bedtime. 18. Alendronate 70 mg q.7 days. IMAGING AND PROCEDURES: The patient had a CT scan of the abdomen and pelvis in which there was an extensive pneumatosis involving the distal sigmoid colon and upper rectum with extensive gas present in the upper perirectal soft tissue extending into the retroperitoneum of the abdomen and dissecting into the mediastinum and right hemithorax. There is focal mucosal, submucosal tear from prominent constipation in the sigmoid colon and upper rectum is suspected. The patient had an exploratory laparotomy with abdominal washout and rectosigmoid resection with colostomy. CODE STATUS: Full code. ALLERGIES: TO CLINDAMYCIN, SULFA, AND TRIMETHOPRIM. HOSPITAL COURSE: Ms. Ga is a pleasant 64-year-old female who presented to the emergency room with complaints of abdominal pain, the full details of which are outlined in the history and physical by Dr. Franklin. The patient had a CT scan in the emergency room, which demonstrated extensive pneumatosis. The patient was admitted and General Surgery was consulted. The patient underwent urgent exploratory laparotomy with abdominal washout. She had a sigmoid resection and colostomy placed. It is felt that the etiology of the bowel perforation was due to severe constipation and stercoral colitis. CT scan did not demonstrate any diverticulosis or diverticulitis. She was seen by Dr. Merrill with Infectious Disease and after she had been treated with broad-spectrum IV antibiotics, it was recommended that she be placed on Levaquin and Flagyl, which she is being discharged on. She had a relatively uneventful postoperative course and once the wound VAC was at place and was stabilized, she was able to be discharged to the longterm facility in [place] and conversation with the patient's daughter, the plan is for long-term care placement thereafter, as she had noted that her mom was having difficulty caring for herself prior to this hospitalization, even in the assisted living facility. Job ID: [id number]
== END 2020-04-16 19:39 | DRG 853 ==
LOC: ERS 20:02 → T4-A 23:35
PROVIDERS: ADMIT Internal Medicine; ATTEND Internal Medicine
PROC: 0DBN0ZZ Excision of Sigmoid Colon, Open Approach (ICD-10-PCS; principal; 2020-04-10)
DX: A41.9 Sepsis, unspecified organism (principal); K63.1 Perforation of intestine (nontraumatic); E87.2 Acidosis; K57.92 Diverticulitis of intestine, part unspecified, without perforation or abscess without bleeding; F41.9 Anxiety disorder, unspecified; K63.89 Other specified diseases of intestine; K66.8 Other specified disorders of peritoneum; J98.2 Interstitial emphysema; F20.9 Schizophrenia, unspecified; J44.9 Chronic obstructive pulmonary disease, unspecified; I10 Essential (primary) hypertension; K59.00 Constipation, unspecified; F17.210 Nicotine dependence, cigarettes, uncomplicated; K21.9 Gastro-esophageal reflux disease without esophagitis; K52.9 Noninfective gastroenteritis and colitis, unspecified; F31.9 Bipolar disorder, unspecified; Z90.49 Acquired absence of other specified parts of digestive tract; Z88.2 Allergy status to sulfonamides; Z79.899 Other long term (current) drug therapy; Z86.73 Personal history of transient ischemic attack (TIA), and cerebral infarction without residual deficits; Z88.8 Allergy status to other drugs, medicaments and biological substances; Z88.1 Allergy status to other antibiotic agents; Z20.828 Contact with and (suspected) exposure to other viral communicable diseases
CPT/HCPCS: 36415; 74177; 80048; 80053; 83605; 83690; 85025; 87040; 87635; 88307; 93005; 94640; 96365; 96367; 96375; J1100; J1200; J1650; J2270; J2370; J2405; J2543; J2704; J3010; J3370; J3480; J3490; J7620; P9045; Q0163; Q9967; S0028; U0003

== ENCOUNTER 2021-07-26 20:27 | Inpatient (IN) | payer MEDICARE, MEDICAID ==
[2021-07-27 00:23] VITALS: BMI 43.7
[2021-07-27 00:37] LABS: Lactic Acid 3.1 mmol/L (0.5-2.2)
[2021-07-27 00:53] LABS: Troponin I 0.067 ng/mL (< 0.028)
[2021-07-27] MEDS ORDERED: Ondansetron PF 4 MG/2 ML Vial IVP PRN (01:12)
[2021-07-27] MEDS ORDERED: Bisacodyl 5 MG TAB PO PRN (01:12)
[2021-07-27] MEDS ORDERED: Guaifenesin DM 100-10/5 ML UDCUP PO PRN (01:12)
[2021-07-27] MEDS ORDERED: Acetaminophen 650 MG Suppository PR PRN (01:12)
[2021-07-27] MEDS ORDERED: Acetaminophen 325 MG TAB PO PRN (01:12)
[2021-07-27] MEDS ORDERED: Senokot S 8.6-50 MG TAB PO PRN (01:12)
[2021-07-27] MEDS ORDERED: Enoxaparin Sodium 40 MG/0.4 ML SYRINGE SC SCH (01:15)
[2021-07-27] MEDS ORDERED: Melatonin 3 MG TAB PO PRN (01:18)
[2021-07-27] MEDS ORDERED: Polyethylene Glycol 3350 17 GM Packet PO PRN (01:18)
[2021-07-27] MEDS ORDERED: Cefepime 2 GM in Sodium Chloride 0.9% 100 ML IVPB SCH (02:00)
[2021-07-27] MEDS ORDERED: Dextrose 5% in Water 1,000 ML IV PRN (02:17)
[2021-07-27] MEDS ORDERED: Dextrose 50% Abboject 50 ML SYRINGE SLOW IVP PRN (02:17)
[2021-07-27] MEDS ORDERED: HumaLOG 300 UNITS/3 ML VIAL SC PRN ×2 (02:17)
[2021-07-27 05:27] LABS: CRP (Inflammatory) 11.75 mg/dL (= or < 0.5); Magnesium 1.6 mg/dL (1.6-2.6)
[2021-07-27 05:28] LABS: Band 16 % (5-11); Hemoglobin 11.7 g/dL (12.0-16.0); Hypochromia SLIGHT = 6-15 cells (100X) (0-5/hpf); Lymphocytes 4 % (21-51); MDiff Complete? YES; Mean Corpuscular HGB CONC 33.8 g/dL (32.0-36.0); Mean Corpuscular Hemoglobin 32.2 pg (27.0-31.0); Mean Corpuscular Volume 95.3 fL (78.0-98.0); Mean Platelet Volume 7.6 fL (7.4-10.4); Monocytes 12 % (0-10); Neutrophil 68 % (42-75); Platelet Count 149 thou/uL (130-400); Platelet Morphology Comment Appears Adequate; RBC Distribution Width 12.1 % (11.5-14.5); Red Blood Cell (RBC) Count 3.62 mill/uL (4.20-5.40); White Blood Cell (WBC) Count 16.7 thou/uL (4.8-10.8)
[2021-07-27 05:29] LABS: ALT (SGPT) 37 U/L (8-55); AST (SGOT) 50 U/L (5-34); Albumin 2.9 g/dL (3.4-4.8); Alkaline Phosphatase 35 U/L (40-110); Anion Gap 13 mmol/L (10-20); BUN (Urea Nitrogen) 11 mg/dL (9.8-20.1); Bilirubin, Total 0.8 mg/dL (0.2-1.2); Calc. Creatinine Clearance 135 mL/min (70-130); Calcium 8.5 mg/dL (7.8-10.44); Carbon Dioxide 24 mmol/L (23-31); Chloride 99 mmol/L (98-107); Glucose 125 mg/dL (80-115); Phosphorus 3.3 mg/dL (2.3-4.7); Potassium 3.7 mmol/L (3.5-5.1); Protein, Total 5.9 g/dL (5.8-8.1); Sodium 132 mmol/L (136-145)
[2021-07-27] MEDS: Cefepime 2 GM in Sodium Chloride 0.9% 100 ML IVPB SCH ×2 (05:42→17:47)
[2021-07-27] MEDS: Vancomycin 1 GM in Premix Bag 1 BAG IVPB SCH ×2 (09:06→20:41)
[2021-07-27] MEDS: Divalproex Sodium DR 500 MG TAB PO SCH ×2 (09:07→20:42)
[2021-07-27] MEDS: risperiDONE 0.25 MG TAB PO SCH ×2 (09:07→20:43)
[2021-07-27] MEDS: Famotidine/PF 20 mg/2ml Vial SLOW IVP SCH ×2 (09:07→20:43)
[2021-07-27] MEDS: Zinc Sulfate 220 MG CAP PO SCH (09:08)
[2021-07-27] MEDS: Cholecalciferol 1,000 UNITS (25 MCG) TAB PO SCH (09:09)
[2021-07-27] MEDS: Loratadine 10 MG TAB PO SCH (09:10)
[2021-07-27] MEDS: Ascorbic Acid 500 mg Chewable Tablet PO SCH ×2 (09:11→20:43)
[2021-07-27] MEDS: Nystatin Powder 15 GM BOT TOP SCH ×2 (17:31→20:42)
[2021-07-27] MEDS: Enoxaparin Sodium 40 MG/0.4 ML SYRINGE SC SCH (20:41)
[2021-07-27] MEDS: Pregabalin 75 MG CAP PO SCH (20:42)
[2021-07-27] MEDS: Atorvastatin Calcium 40 MG TAB PO SCH (20:43)
[2021-07-28] MEDS: Cefepime 2 GM in Sodium Chloride 0.9% 100 ML IVPB SCH ×2 (06:23→20:58)
[2021-07-28 07:49] LABS: #Eosinphils 0.1 thou/uL (0.0-0.7); #Lymphocytes 2.2 thou/uL (1.20-3.40); #Monocytes 0.8 thou/uL (0.11-0.59); #Neutrophils 6.8 thou/uL (1.40-6.50); %Basophils 0.4 % (0.0-1.0); %Eosinophils 0.7 % (0.0-10.0); %Lymphocytes 22.4 % (21.0-51.0); %Monocytes 7.8 % (0.0-10.0); %Neutrophils 68.8 % (42.0-75.0); Hemoglobin 11.1 g/dL (12.0-16.0); Mean Corpuscular HGB CONC 33.1 g/dL (32.0-36.0); Mean Corpuscular Volume 96.5 fL (78.0-98.0); Mean Platelet Volume 7.3 fL (7.4-10.4); Platelet Count 139 thou/uL (130-400); RBC Distribution Width 12.2 % (11.5-14.5); Red Blood Cell (RBC) Count 3.47 mill/uL (4.20-5.40); White Blood Cell (WBC) Count 9.8 thou/uL (4.8-10.8)
[2021-07-28 08:10] LABS: Vancomycin, Trough 11.2 ug/mL
[2021-07-28 08:12] LABS: ALT (SGPT) 35 U/L (8-55); AST (SGOT) 46 U/L (5-34); Albumin 2.8 g/dL (3.4-4.8); Alkaline Phosphatase 36 U/L (40-110); Anion Gap 9 mmol/L (10-20); BUN (Urea Nitrogen) 8 mg/dL (9.8-20.1); Bilirubin, Total 0.5 mg/dL (0.2-1.2); CRP (Inflammatory) 13.82 mg/dL (= or < 0.5); Calc. Creatinine Clearance 151 mL/min (70-130); Calcium 8.3 mg/dL (7.8-10.44); Carbon Dioxide 25 mmol/L (23-31); Chloride 100 mmol/L (98-107); Glucose 132 mg/dL (80-115); Magnesium 1.7 mg/dL (1.6-2.6); Phosphorus 2.9 mg/dL (2.3-4.7); Potassium 3.4 mmol/L (3.5-5.1); Protein, Total 5.8 g/dL (5.8-8.1); Sodium 131 mmol/L (136-145)
[2021-07-28] MEDS: Ascorbic Acid 500 mg Chewable Tablet PO SCH ×2 (08:45→21:00)
[2021-07-28] MEDS: Divalproex Sodium DR 500 MG TAB PO SCH ×2 (08:46→21:03)
[2021-07-28] MEDS: Aspirin 81 mg Enteric Coated Tablet PO SCH (08:46)
[2021-07-28] MEDS: Cholecalciferol 1,000 UNITS (25 MCG) TAB PO SCH (08:46)
[2021-07-28] MEDS: risperiDONE 0.25 MG TAB PO SCH ×2 (08:46→20:59)
[2021-07-28] MEDS: Pregabalin 75 MG CAP PO SCH ×2 (08:47→21:01)
[2021-07-28] MEDS: Loratadine 10 MG TAB PO SCH (08:47)
[2021-07-28] MEDS: Famotidine/PF 20 mg/2ml Vial SLOW IVP SCH ×2 (08:47→21:03)
[2021-07-28] MEDS: Zinc Sulfate 220 MG CAP PO SCH (08:47)
[2021-07-28] MEDS: Vancomycin HCl 1.25 GM in Sodium Chloride 0.9% 250 ML 250 ML IVPB SCH ×2 (10:04→21:54)
[2021-07-28] MEDS: Vancomycin 1 GM in Premix Bag 1 BAG IVPB SCH (10:18)
[2021-07-28] MEDS ORDERED: Potassium Chloride 40 MEQ in Sodium Chloride 0.9% 250 ML 250 ML IVPB SCH (11:45)
[2021-07-28] MEDS ORDERED: Potassium Chloride 40 MEQ in Premix Bag 1 BAG IVPB SCH (11:45)
[2021-07-28] MEDS ORDERED: Potassium Chloride 20 MEQ TAB PO SCH (11:45)
[2021-07-28] MEDS: Nystatin Powder 15 GM BOT TOP SCH ×2 (12:53→21:06)
[2021-07-28] MEDS: Enoxaparin Sodium 40 MG/0.4 ML SYRINGE SC SCH (20:59)
[2021-07-28] MEDS: Atorvastatin Calcium 40 MG TAB PO SCH (21:00)
[2021-07-28 21:46] LABS: Bacteria/HPF None Seen HPF (None Seen); Bilirubin Negative (Negative); Blood, Urine Negative (Negative); Clarity Clear (Clear); Glucose, Urine (Dipstick) Normal (Negative); Ketone, Urine Negative (Negative); Leukocyte Negative Leu/uL (Negative); Nitrite Negative (Negative); Protein, Urine (Dipstick) Negative (Neg-Trace); RBC/HPF 0-3 HPF (0-3); Specific Gravity, Urine 1.008 (1.002-1.036); Squamous Epithelial 0-3 HPF (0-3); Urobilinogen Normal mg/dL (Less than 2); WBC/HPF 0-3 HPF (0-3)
[2021-07-29] MEDS: Cefepime 2 GM in Sodium Chloride 0.9% 100 ML IVPB SCH ×2 (05:10→19:12)
[2021-07-29 07:22] LABS: ALT (SGPT) 32 U/L (8-55); AST (SGOT) 39 U/L (5-34); Alkaline Phosphatase 41 U/L (40-110); Anion Gap 12 mmol/L (10-20); BUN (Urea Nitrogen) 6 mg/dL (9.8-20.1); Bilirubin, Total 0.5 mg/dL (0.2-1.2); Calc. Creatinine Clearance 151 mL/min (70-130); Calcium 8.2 mg/dL (7.8-10.44); Carbon Dioxide 25 mmol/L (23-31); Chloride 101 mmol/L (98-107); Globulin 3.2 g/dL (2.4-3.5); Glucose 130 mg/dL (80-115); Magnesium 1.8 mg/dL (1.6-2.6); Protein, Total 6.2 g/dL (5.8-8.1); Sodium 134 mmol/L (136-145); Uric Acid 5.1 mg/dL (2.6-6.0)
[2021-07-29 08:13] LABS: #Eosinphils 0.2 thou/uL (0.0-0.7); #Lymphocytes 2.2 thou/uL (1.20-3.40); #Monocytes 0.6 thou/uL (0.11-0.59); #Neutrophils 3.2 thou/uL (1.40-6.50); %Basophils 0.5 % (0.0-1.0); %Eosinophils 3.6 % (0.0-10.0); %Lymphocytes 35.9 % (21.0-51.0); %Monocytes 8.9 % (0.0-10.0); %Neutrophils 51.1 % (42.0-75.0); Hemoglobin 10.9 g/dL (12.0-16.0); Mean Corpuscular HGB CONC 33.1 g/dL (32.0-36.0); Mean Corpuscular Hemoglobin 31.8 pg (27.0-31.0); Mean Corpuscular Volume 95.9 fL (78.0-98.0); Mean Platelet Volume 7.7 fL (7.4-10.4); Platelet Count 132 thou/uL (130-400); Red Blood Cell (RBC) Count 3.42 mill/uL (4.20-5.40); White Blood Cell (WBC) Count 6.2 thou/uL (4.8-10.8)
[2021-07-29] MEDS: Pregabalin 75 MG CAP PO SCH ×2 (08:45→20:36)
[2021-07-29] MEDS: Cholecalciferol 1,000 UNITS (25 MCG) TAB PO SCH (08:45)
[2021-07-29] MEDS: Loratadine 10 MG TAB PO SCH (08:47)
[2021-07-29] MEDS: Ascorbic Acid 500 mg Chewable Tablet PO SCH ×2 (08:47→20:36)
[2021-07-29] MEDS: Divalproex Sodium DR 500 MG TAB PO SCH ×2 (08:47→20:35)
[2021-07-29] MEDS: Zinc Sulfate 220 MG CAP PO SCH (08:47)
[2021-07-29] MEDS: risperiDONE 0.25 MG TAB PO SCH ×2 (08:47→20:38)
[2021-07-29] MEDS: Aspirin 81 mg Enteric Coated Tablet PO SCH (08:47)
[2021-07-29] MEDS: Famotidine/PF 20 mg/2ml Vial SLOW IVP SCH ×2 (08:47→20:39)
[2021-07-29] MEDS: Nystatin Powder 15 GM BOT TOP SCH ×2 (08:48→20:39)
[2021-07-29] MEDS: Vancomycin HCl 1.25 GM in Sodium Chloride 0.9% 250 ML 250 ML IVPB SCH (09:57)
[2021-07-29] MEDS: Atorvastatin Calcium 40 MG TAB PO SCH (20:35)
[2021-07-29 20:38] LABS: Vancomycin, Trough 15.8 ug/mL
[2021-07-29] MEDS: Enoxaparin Sodium 40 MG/0.4 ML SYRINGE SC SCH (20:38)
[2021-07-29] MEDS: Doxycycline 100 MG CAP PO SCH (23:26)
[2021-07-30 06:42] LABS: #Basophils 0.1 thou/uL (0.0-0.2); #Eosinphils 0.2 thou/uL (0.0-0.7); #Lymphocytes 2.1 thou/uL (1.20-3.40); #Monocytes 0.6 thou/uL (0.11-0.59); #Neutrophils 1.9 thou/uL (1.40-6.50); %Basophils 1.2 % (0.0-1.0); %Eosinophils 4.7 % (0.0-10.0); %Lymphocytes 43.4 % (21.0-51.0); %Monocytes 12.4 % (0.0-10.0); %Neutrophils 38.2 % (42.0-75.0); Hemoglobin 11.5 g/dL (12.0-16.0); Mean Corpuscular Hemoglobin 31.6 pg (27.0-31.0); Mean Corpuscular Volume 95.6 fL (78.0-98.0); Mean Platelet Volume 7.5 fL (7.4-10.4); Platelet Count 159 thou/uL (130-400); RBC Distribution Width 11.9 % (11.5-14.5); Red Blood Cell (RBC) Count 3.63 mill/uL (4.20-5.40); White Blood Cell (WBC) Count 4.9 thou/uL (4.8-10.8)
[2021-07-30 07:27] LABS: ALT (SGPT) 26 U/L (8-55); AST (SGOT) 30 U/L (5-34); Albumin 2.8 g/dL (3.4-4.8); Alkaline Phosphatase 36 U/L (40-110); Anion Gap 12 mmol/L (10-20); BUN (Urea Nitrogen) 5 mg/dL (9.8-20.1); Bilirubin, Total 0.4 mg/dL (0.2-1.2); Calc. Creatinine Clearance 156 mL/min (70-130); Calcium 8.2 mg/dL (7.8-10.44); Carbon Dioxide 28 mmol/L (23-31); Chloride 99 mmol/L (98-107); Globulin 3.1 g/dL (2.4-3.5); Glucose 132 mg/dL (80-115); Magnesium 1.7 mg/dL (1.6-2.6); Phosphorus 3.7 mg/dL (2.3-4.7); Potassium 3.8 mmol/L (3.5-5.1); Protein, Total 5.9 g/dL (5.8-8.1); Sodium 135 mmol/L (136-145)
[2021-07-30 07:36] VITALS: TEMP 98.3
[2021-07-30] MEDS: Aspirin 81 mg Enteric Coated Tablet PO SCH (08:17)
[2021-07-30] MEDS: Doxycycline 100 MG CAP PO SCH (08:17)
[2021-07-30] MEDS: Zinc Sulfate 220 MG CAP PO SCH (08:17)
[2021-07-30] MEDS: Divalproex Sodium DR 500 MG TAB PO SCH (08:17)
[2021-07-30] MEDS: Cholecalciferol 1,000 UNITS (25 MCG) TAB PO SCH (08:19)
[2021-07-30] MEDS: Nystatin Powder 15 GM BOT TOP SCH (08:19)
[2021-07-30] MEDS: Ascorbic Acid 500 mg Chewable Tablet PO SCH (08:19)
[2021-07-30] MEDS: risperiDONE 0.25 MG TAB PO SCH (08:19)
[2021-07-30] MEDS: Loratadine 10 MG TAB PO SCH (08:19)
[2021-07-30] MEDS: Pregabalin 75 MG CAP PO SCH (08:20)
[2021-07-30] MEDS: Famotidine/PF 20 mg/2ml Vial SLOW IVP SCH (08:20)
[2021-07-30 08:31] VITALS: BP 132/82
== END 2021-07-30 10:39 | DRG 871 ==
LOC: 2SW 22:55 → T4-A 07-28 12:40
PROVIDERS: ADMIT Student in an Organized Health Care Education/Training Program; ATTEND Family Medicine
PROC: 8E0ZXY6 Isolation (ICD-10-PCS; principal; 2021-07-26)
DX: A41.9 Sepsis, unspecified organism (principal); U07.1 COVID-19; G93.41 Metabolic encephalopathy; G45.9 Transient cerebral ischemic attack, unspecified; E87.1 Hypo-osmolality and hyponatremia; Z23 Encounter for immunization; Z66 Do not resuscitate; K21.9 Gastro-esophageal reflux disease without esophagitis; E78.5 Hyperlipidemia, unspecified; J44.9 Chronic obstructive pulmonary disease, unspecified; M54.9 Dorsalgia, unspecified; F17.210 Nicotine dependence, cigarettes, uncomplicated; G89.29 Other chronic pain; E83.42 Hypomagnesemia; E11.65 Type 2 diabetes mellitus with hyperglycemia; I11.0 Hypertensive heart disease with heart failure; I50.9 Heart failure, unspecified; F31.9 Bipolar disorder, unspecified; K59.00 Constipation, unspecified; L30.4 Erythema intertrigo; Z93.3 Colostomy status; Z79.82 Long term (current) use of aspirin; Z79.899 Other long term (current) drug therapy; Z90.49 Acquired absence of other specified parts of digestive tract; Z90.09 Acquired absence of other part of head and neck; Z98.890 Other specified postprocedural states
CPT/HCPCS: 36415; 36416; 71045; 80053; 80202; 81001; 83036; 83605; 83735; 83930; 83935; 84100; 84300; 84439; 84443; 84550; 84560; 85025; 86140; 87040; J0692; J1650; J3370; J3480; J3490; J7050; S0028